=== PATIENT | female | born 1940 | race Caucasian/White ===

== ENCOUNTER 2017-07-26 23:38 | Emergency (ER) | payer MEDICARE, BC ==
[~2017-07-26] VITALS: Ht 177.8 cm; Wt 80.9 kg
[2017-07-27] MEDS ORDERED: OXYMETAZOLINE HCL 0.05% NAS 1 SPRAY BTL ONE (00:30)
[2017-07-27] MEDS ORDERED: SPIRONOLACTONE25 MG PO (00:41)
[2017-07-27] MEDS ORDERED: CARVEDILOL12.5 MG PO (00:41)
[2017-07-27] MEDS ORDERED: XARELTO20 MG PO (00:41)
[2017-07-27] MEDS ORDERED: IBERSARTAN PEG (00:41)
[2017-07-27] MEDS ORDERED: METFORMIN HCL500 MG PO (00:41)
[2017-07-27 00:44] VITALS: BP 128/69
== END 2017-07-27 01:00 | disposition home or self-care (01) ==
LOC: FSED 23:38
DX: R04.0 Epistaxis (principal); W01.198A Fall on same level from slipping, tripping and stumbling with subsequent striking against other object, initial encounter; Y93.H2 Activity, gardening and landscaping; Y92.007 Garden or yard of unspecified non-institutional (private) residence as the place of occurrence of the external cause; I51.9 Heart disease, unspecified
CPT/HCPCS: 99282

== ENCOUNTER 2017-07-27 13:01 | Emergency (ER) | payer MEDICARE, BC ==
[~2017-07-27] VITALS: Ht 177.8 cm; Wt 80.7 kg
[~2017-07-27 13:01] MED LIST: CARVEDILOL12.5 MG PO; IBERSARTAN PEG; METFORMIN HCL500 MG PO; SPIRONOLACTONE25 MG PO; XARELTO20 MG PO
--- OUTSIDE RECORDS SUMMARY | 2017-07-27 13:03 | XMS REPORT | Clinical Summary ---
Author Author LIBIA Makeblock [facility] Address Unknown Phone Unavailable Care Team Providers Care Coiled Tubing Operator Name Role Phone PCP Unavailable Allergies No Known Allergies Current Medications Prescription Sig. Disp. Refills Start End Date Status Date irbesartan (AVAPRO) 150 Take 150 mg by mouth Active MG tablet nightly. spironolactone Take 25 mg by mouth 2 Active (ALDACTONE) 25 MG tablet (two) times daily. carvedilol (COREG) 25 MG Take 25 mg by mouth 2 Active tablet (two) times daily with breakfast and dinner. aspirin 81 MG EC tablet Take 81 mg by mouth Active daily. metFORMIN (GLUCOPHAGE) Take 500 mg by mouth 2 Active 500 MG tablet (two) times daily with breakfast and dinner. omega-3 fatty acids-fish Take 2 g by mouth 2 (two) Active oil 340-1,000 mg Cap per times daily. capsule digoxin (LANOXIN) 0.25 MG Take 250 mcg by mouth 05/31/19 Discontin tablet daily. 18 ued Active Problems Problem Noted Date Nonischemic cardiomyopathy (HCC) 05/28/2017 Diabetes mellitus (HCC) 05/27/2017 Exertional dyspnea 05/27/2017 Essential hypertension 05/27/2017 Atrial fibrillation with slow ventricular response (HCC) 05/26/2017 Encounters Date Type Specialty Care Team Description 05/29/2017 Procedure Pass 05/29/2017 Surgery Jayjay Fuentes, PACEMAKER GEN & LEADS - MD INSERTION W/ MAC ANESTHESIA (SING/DUAL/MULT) 05/26/2017 [facility] Cardiology FreedomRob MD Atrial fibrillation with - Encounter Rama Desai slow ventricular response 05/30/2017 Seven Pride MD ([facility]) (Primary Dx);Acute Damián Lowe MD congestive heart failure, unspecified congestive heart failure type (HCC);Type 2 diabetes mellitus without complication, without long-term current use of insulin (HCC);Essential hypertension;Leg swelling;Nonischemic cardiomyopathy (HCC);Pacemaker 05/26/2017 Orders Only General Internal Medicine after 07/26/2016 Social History Tobacco Use Types Packs/Day Years Used Date Never Smoker Smokeless Tobacco: Never Used Alcohol Use Drinks/Week oz/Week Comments No Sex Assigned at Date Recorded Not on file Last Filed Vital Signs Vital Sign Reading Time Taken Blood Pressure 122/57 05/30/2017 11:20 AM CDT Pulse 77 05/30/2017 11:20 AM CDT Temperature 37.2 C (98.9 F) 05/30/2017 11:20 AM CDT Respiratory Rate 18 05/30/2017 11:20 AM CDT Oxygen Saturation 95% 05/30/2017 11:20 AM CDT Inhaled Oxygen - - Concentration Weight 78.2 kg (172 lb 4.8 oz) 05/30/2017 5:27 AM CDT Height 175.3 cm (5' 9") 05/27/2017 6:30 AM CDT Body Mass Index 25.44 05/30/2017 5:27 AM CDT Plan of Treatment Not on file Implants Implanted Type Area Sole Dyer Device Expiration Model / Identifier Date Serial / Lot Lead Pacemkr Capsur Novus 52cm Pacemaker N/A: Heart MEDTRONIC:CARD 5076-52 / [id number] - [id number] Lead RHY:DISEASE MGT [id number] Implanted: Qty: 1 on 05/29/2017 by / Jayjay Fuentes MD Advisa Sr Mri Surescan Pacemakers N/A: Chest MEDTRONIC 10/11/2018 [id number] / Implanted: Qty: 1 on 05/29/2017 by [id number] Jayjay Fuentes MD / Procedures Procedure Name Priority Date/Time Associated Diagnosis Comments PACEMAKER GEN & LEADS - 05/29/2017 Bradycardia INSERTION W/ MAC 7:30 AM CDT ANESTHESIA (SING/DUAL/MULT) Case Notes (1) CASE RM 2442 single chamber ventricula r pacemakerM edtronic after 07/26/2016 Results * RHYTHM STRIP - SCAN (06/02/2017 11:10 AM) * ARRYTHMIA IMPLANT REPORT - SCAN (06/02/2017 11:10 AM) * ED ECG Interpretation (05/30/2017 3:53 PM) Narrative Rob Turcios MD 05/30/20173:53 PM ECG/EKG Interpretation Date/Time: 05/26/2017 2:59 PM Performed by: ROB TURCIOS Authorized by: ROB TURCIOS The ECG was interpreted by ED physician. The ECG is interpreted as atrial fibrillation. Rate is bradycardic. Heart rate is 44 BPM. Conduction: conduction normal. ST segments abnormal. T waves abnormal. [place] is normal. Other findings: no other findings. Clinical Impression: abnormal ECGECG reviewed and does not meet STEMI criteria. Patient tolerance: Patient tolerated the procedure well with no immediate complications * CARDIAC CATH REPORT - SCAN (05/30/2017 3:20 PM) * POC-Glucose meter (05/30/2017 11:25 AM) Only the most recent of 10 results within the time period is included. Component Value Ref Range POC-Glucose Meter 111 (H)Comment: TESTED AT [address] 70 - 110 mg /dL [place] [id number] Specimen Performing Laboratory [place] [address] * XR chest 1 view portable/bedside (05/30/2017 6:58 AM) Only the most recent of 3 results within the time period is included. Specimen Performing Laboratory GE RIS Narrative FINAL REPORT COMPARISON: 05/29/2017 TECHNIQUE: Single view of the chest FINDINGS: Left retrocardiac density which may represent atelectasis or pneumonitis again noted. Otherwise lungs are clear. Cardiac silhouette is enlarged. Left-sided pacing device noted. IMPRESSION: No significant interval change from previous exam. Signed: Braden Dial MD Report Verified Date/Time:05/30/2017 09:08:57 Reading Location: [facility] Radiology Reading Room Procedure Note Interface, External Ris In - 05/30/2017 9:11 AM CDT FINAL REPORT COMPARISON: 05/29/2017 TECHNIQUE: Single view of the chest FINDINGS: Left retrocardiac density which may represent atelectasis or pneumonitis again noted. Otherwise lungs are clear. Cardiac silhouette is enlarged. Left-sided pacing device noted. IMPRESSION: No significant interval change from previous exam. Signed: Braden Dial MD Report Verified Date/Time: 05/30/2017 09:08:57 Reading Location: [facility] Radiology Reading Room * EKG 12 lead (05/30/2017 5:37 AM) Only the most recent of 3 results within the time period is included. Specimen Performing Laboratory GE MUSE Narrative Ventricular Rate 76 BPM Atrial Rate 374 BPM QRS Duration 106 ms Q-T Interval 358 ms QTC Calculation(Bazett) 402 ms R [place] -13 degrees T [place] 157 degrees Demand pacemaker;interpretation is based on intrinsic rhythm Atrial flutter with variable A-V blockwith intermittent electronic ventricular pacing Incomplete left bundle branch block Inferior infarct (cited on or before 26-MAY-2017) Anterior infarct (cited on or before 26-MAY-2017) Marked ST abnormality, possible lateral subendocardial injury Abnormal ECG When compared with ECG of 26-MAY-2017 18:48, Atrial flutter has replaced Atrial fibrillation PVCs are not seen now Vent. rate has increased BY26 BPM Confirmed by MD MCKINNEY YOCHAI ([id number]) on 05/30/2017 6:57:19 AM Procedure Note Interface, External Ris In - 05/30/2017 6:57 AM CDT Ventricular Rate 76 BPM Atrial Rate 374 BPM QRS Duration 106 ms Q-T Interval 358 ms QTC Calculation(Bazett) 402 ms R [place] -13 degrees T [place] 157 degrees Demand pacemaker; interpretation is based on intrinsic rhythm Atrial flutter with variable A-V block with intermittent electronic ventricular pacing Incomplete left bundle branch block Inferior infarct (cited on or before 26-MAY-2017) Anterior infarct (cited on or before 26-MAY-2017) Marked ST abnormality, possible lateral subendocardial injury Abnormal ECG When compared with ECG of 26-MAY-2017 18:48, Atrial flutter has replaced Atrial fibrillation PVCs are not seen now Vent. rate has increased BY 26 BPM Confirmed by MD MCKINNEY YOCHAI ([id number]) on 05/30/2017 6:57:19 AM * Calcium, Ionized (05/30/2017 4:26 AM) Only the most recent of 4 results within the time period is included. Component Value Ref Range Calcium, Ion 1.06 (L) 1.12 - 1.27 mmol/L pH, Blood 7.48 Specimen Performing Laboratory Blood - Arm, [place] [id number] * CBC with platelet count + automated diff (05/30/2017 4:26 AM) Only the most recent of 5 results within the time period is included. Component Value Ref Range WBC 9.9 3.5 - 10.5 K/ L RBC 3.85 (L) 3.93 - 5.22 M/ L Hemoglobin 11.8 11.2 - 15.7 GM/DL Hematocrit 36.3 34.1 - 44.9 % MCV 94.3 79.4 - 94.8 fL MCH 30.6 25.6 - 32.2 pg MCHC 32.5 32.2 - 35.5 GM/DL RDW 12.6 11.7 - 14.4 % Platelets 291 150 - 450 K/CU MM MPV 9.5 9.4 - 12.3 fL nRBC 0 0 - 0 /100 WBC % Neutros 58 % % Lymphs 28 % % Monos 12 % % Eos 2 % % Baso 1 % # Neutros 5.68 1.56 - 6.13 K/ L # Lymphs 2.73 1.18 - 3.74 K/ L # Monos 1.20 (H) 0.24 - 0.36 K/ L # Eos 0.18 0.04 - 0.36 K/ L # Baso 0.05 0.01 - 0.08 K/ L Immature 0 0 - 1 % Granulocytes-Relative Specimen Performing Laboratory Blood - Arm, [address] [address] * CBC with platelet count + automated diff (05/30/2017 4:26 AM) Only the most recent of 5 results within the time period is included. Specimen Performing Laboratory Blood Narrative The following orders were created for panel order CBC with platelet count + automated diff. Procedure Abnormality Status --------- - ------ CBC with platelet count ...[[id number]]AbnormalFinal result Please view results for these tests on the individual orders. * Phosphorus (05/30/2017 4:26 AM) Only the most recent of 3 results within the time period is included. Component Value Ref Range Phosphorus 3.3 2.3 - 4.7 mg/dL Specimen Performing Laboratory Blood - Arm, [address] [address] * Magnesium (05/30/2017 4:26 AM) Only the most recent of 5 results within the time period is included. Component Value Ref Range Magnesium 2.0 1.6 - 2.6 mg/dL Specimen Performing Laboratory Blood - Arm, [address] [address] * Basic Metabolic Panel (05/30/2017 4:26 AM) Only the most recent of 4 results within the time period is included. Component Value Ref Range Sodium 132 (L) 136 - 145 meq/L Potassium 4.2 3.5 - 5.1 meq/L Chloride 103 98 - 107 meq/L CO2 17 (L) 22 - 29 meq/L BUN 18 7 - 21 mg/dL Creatinine 0.76 0.57 - 1.25 mg/dL Glucose 121 (H) 70 - 105 mg/dL Calcium 9.5 8.4 - 10.2 mg/dL EGFR 73Comment: ESTIMATED GFR IS NOT ACCURATE mL/min/1.73 sq m CREATININE CLEARANCE IN PREDICTING GLOMERULAR FILTRATION RATE. ESTIMATED GFR IS NOT APPLICABLE FOR DIALYSIS PATIENTS. Specimen Performing Laboratory Blood - Arm, [address] [address] Narrative Specimen slightly icteric * Prothrombin time/INR (05/29/2017 5:00 AM) Only the most recent of 3 results within the time period is included. Component Value Ref Range Protime 14.5 11.7 - 14.7 seconds INR 1.1 <=5.9 Specimen Performing Laboratory Blood [address] [address] Narrative RECOMMENDED COUMADIN/WARFARIN INR THERAPY RANGES STANDARD DOSE: 2.0 - 3.0 Includes: PROPHYLAXIS for venous thrombosis, systemic embolization; TREATMENT for venous thrombosis and/or pulmonary embolus. HIGH RISK: Target INR is 2.5-3.5 for patients with mechanical heart valves. * Hemoglobin A1c (05/29/2017 5:00 AM) Only the most recent of 2 results within the time period is included. Component Value Ref Range Hemoglobin A1C 6.2 (H) 4.3 - 6.1 % Specimen Performing Laboratory Blood [address] [address] * Hepatic function panel (05/29/2017 5:00 AM) Only the most recent of 3 results within the time period is included. Component Value Ref Range Protein, Total 7.9 6.0 - 8.3 gm/dL Albumin 4.0 3.5 - 5.0 g/dL Total Bilirubin 1.4 (H) 0.2 - 1.2 mg/dL Bilirubin, Direct 0.5 0.1 - 0.5 mg/dL Alkaline Phosphatase 62 40 - 150 U/L AST 21 5 - 34 U/L ALT 21 6 - 55 U/L Specimen Performing Laboratory Blood [address] [address] Narrative Specimen slightly icteric * Lipid panel (05/29/2017 5:00 AM) Only the most recent of 3 results within the time period is included. Component Value Ref Range Triglycerides 136 mg/dL Cholesterol 163 mg/dL HDL 29 mg/dL LDL Calculated 107 mg/dL Specimen Performing Laboratory Blood [address] [address] Narrative Triglyceride Reference Range: Low Risk <150 [id number] High Risk 200-499 Very High Risk>=500 Cholesterol Reference Range: Low Risk <200 [id number] High Risk>240 HDL Cholesterol Reference Range: Low Risk >=60 High Risk <40 LDL Cholesterol Reference Range: Optimal<100 Near [id number] Very High >=190 Specimen slightly icteric * ECHOCARDIOGRAM REPORT - SCAN (05/28/2017 5:07 PM) * B-type Natriuretic Factor (BNP) (05/28/2017 10:06 AM) Only the most recent of 2 results within the time period is included. Component Value Ref Range BNP 119 (H) 0 - 100 pg/mL Specimen Performing Laboratory Blood - Arm, Right [address] [address] * 2D Echo W/Doppler(CW/PW/Color) (05/27/2017 4:16 PM) Component Value Ref Range Ejection Fraction Specimen Performing Laboratory [facility] Narrative Transthoracic Echocardiography Report (TTE) Demographics Patient NameSTANGER, SUE Date of Study03/ MAJO Gender Female Visit [id number] Race Unknown [id number] Number Date of 1940 ReferringJayjay Fuentes Physician Age 77 year(s) Hand Drawer In Helper Constanza Jasmine Interpreting Milena Aguilar Physician MIRA Sims Procedure Type of Study TTE procedure:2DECHO W DOPPLER(CW/PW/COLOR) (Routine) Indications:Shortness of breath. Clinical History HTN DM A.FIB. SOB EDEMA HGB 10.6 HCT 32.8 % Height: 69 inches Weight: 78.02 kg (172 lbs) BSA: 1.94 m^2 BMI: 25.4 kg/m^2 HR: 62 bpm BP: 118/60 mmHg Summary 1. The left ventricle is chamber size (by vol index) is mildly enlarged (female - LVED 62-70ml/m2). All of the LV segments are mildly hypokinetic. 2. LVEF by Chadwick's method of disk assessment is mildly reduced (45-49%) Estimated peak systolic PA pressure is 30-35 mmHg . Previous Study No prior exam available for comparison. Signature Findings Rhythm/BPIrregular rhythm during the exam. Left Ventricle The left ventricle is chamber size (by vol index ) is mildly enlarged (female - LVED 62-70ml/m2). No evidence of LV hypertrophy. All of the LV segments are mildly hypokinetic . Global LV systolic function mildly reduced . LVEF by Chadwick's method of disk assessment is mildly reduced (45-49%) . Left AtriumLA size is moderately enlarged (42-48 ml/m2 ) . Right VentricleThe right ventricular chamber size and systolic function are within normal limits. Right Atrium RA size is probably normal based on available views. Aortic Valve Mild aortic regurgitation. Mitral Valve Mild MV leaflet thickening. Mild mitral regurgitation. Tricuspid ValveMild tricuspid regurgitation. Estimated peak systolic PA pressure is 30-35 mmHg . Pulmonic Valve Mild pulmonary regurgitation. AortaAortic root size (Sinus of Valsalva diameter) is mildly dilated. 4.1 cm PericardiumNo pericardial effusion is visualized. IVC/SVC/PA/PV/PleuralThe estimated RA pressure by IVC dynamics 0-5mmHg . Chambers/Structures Left Atrium LA Volume: 91.71 ml LA Area: 27.89 cm^2 LA Vol. Index: 47 ml/m^2 Left Ventricle LVIDd: 5.18 cm LVIDs: 3.41 cm LV Septum Diastolic: 0.89 cm LV PW Diastolic: 1.24 cmLV FS: 34.2 % LVEDV Chadwick's:128.2 ml LVESV Chadwick's:69.4 ml LVEDVI: 66 ml/m ^2 LVEF Chadwick's: 45.9 %LVESVI: 36 ml /m^2 LVOT Diameter: 2.07 cm Aorta Ascending Aorta: 4.24 cm Doppler/Quantitative Measurements Mitral Valve MV Jae. Peak: Tissue Doppler E' Lateral Velocity: 0.11 m/s Aortic Valve Peak Velocity: 2.03 m/sMean Velocity: 1.14 m/s Peak Gradient: 16.53 mmHgMean Gradient: 6.36 mmHg AV Area (continuity): 1.34 cm^2 AV VTI: 31.73 cm AV DVI: 0.4 LVOT Peak Velocity: 0.62 m/s Peak Gradient: 1.53 mmHg Mean Velocity: 0.42 m/s Mean Gradient: 0.79 mmHg LVOT Diameter: 2.07 cmLVOT VTI: 12.64 cm LVOT Area: 3.37 cm^2LVOT SV:42.52 ml LVOT CO: 2.64 l/min LVOT CI: 1.36 l/min/m^2 Tricuspid Valve TR Velocity: 2.8 m/s TR Gradient: 31.36 mmHg Contractility Score LV regional wall motion:(0-Non visualized 1-Normal 2-Hypokinesis 3-Akinesis 4-Dyskinesis 5-Aneurysm) Procedure Note Interface, External Ris In - 05/28/2017 4:09 PM CDT Transthoracic Echocardiography Report (TTE) Demographics Patient Name SUE DOLAN Date of Study 05/27/2017 MAJO Gender Female Visit Number [id number] Race Unknown Room Number 2442 Number Date of 1940 Referring Jayjay Fuentes Physician Age 77 year(s) Hand Drawer In Helper Constanza Jasmine Interpreting Milena Aguilar Physician Fellow MIRA Farris Procedure Type of Study TTE procedure:2DECHO W DOPPLER(CW/PW/COLOR) (Routine) Indications:Shortness of breath. Clinical History HTN DM A.FIB. SOB EDEMA HGB 10.6 HCT 32.8 % Height: 69 inches Weight: 78.02 kg (172 lbs) BSA: 1.94 m^2 BMI: 25.4 kg/m^2 HR: 62 bpm BP: 118/60 mmHg Summary 1. The left ventricle is chamber size (by vol index) is mildly enlarged (female - LVED 62-70ml/m2). All of the LV segments are mildly hypokinetic. 2. LVEF by Chadwick's method of disk assessment is mildly reduced (45-49%) Estimated peak systolic PA pressure is 30-35 mmHg . Previous Study No prior exam available for comparison. Signature Findings Rhythm/BP Irregular rhythm during the exam. Left Ventricle The left ventricle is chamber size (by vol index) is mildly enlarged (female - LVED 62-70ml/m2). No evidence of LV hypertrophy. All of the LV segments are mildly hypokinetic . Global LV systolic function mildly reduced . LVEF by Chadwick's method of disk assessment is mildly reduced (45-49%) . Left Atrium LA size is moderately enlarged (42-48 ml/m2) . Right Ventricle The right ventricular chamber size and systolic function are within normal limits. Right Atrium RA size is probably normal based on available views. Aortic Valve Mild aortic regurgitation. Mitral Valve Mild MV leaflet thickening. Mild mitral regurgitation. Tricuspid Valve Mild tricuspid regurgitation. Estimated peak systolic PA pressure is 30-35 mmHg . Pulmonic Valve Mild pulmonary regurgitation. Aorta Aortic root size (Sinus of Valsalva diameter) is mildly dilated. 4.1 cm Pericardium No pericardial effusion is visualized. IVC/SVC/PA/PV/Pleural The estimated RA pressure by IVC dynamics 0-5mmHg . Chambers/Structures Left Atrium LA Volume: 91.71 ml LA Area: 27.89 cm^2 LA Vol. Index: 47 ml/m^2 Left Ventricle LVIDd: 5.18 cm LVIDs: 3.41 cm LV Septum Diastolic: 0.89 cm LV PW Diastolic: 1.24 cm LV FS: 34.2 % LVEDV Chadwick's:128.2 ml LVESV Chadwick's:69.4 ml LVEDVI: 66 ml/m^2 LVEF Chadwick's: 45.9 % LVESVI: 36 ml/m^2 LVOT Diameter: 2.07 cm Aorta Ascending Aorta: 4.24 cm Doppler/Quantitative Measurements Mitral Valve MV Jae. Peak: Tissue Doppler E' Lateral Velocity: 0.11 m/s Aortic Valve Peak Velocity: 2.03 m/s Mean Velocity: 1.14 m/s Peak Gradient: 16.53 mmHg Mean Gradient: 6.36 mmHg AV Area (continuity): 1.34 cm^2 AV VTI: 31.73 cm AV DVI: 0.4 LVOT Peak Velocity: 0.62 m/s Peak Gradient: 1.53 mmHg Mean Velocity: 0.42 m/s Mean Gradient: 0.79 mmHg LVOT Diameter: 2.07 cm LVOT VTI: 12.64 cm LVOT Area: 3.37 cm^2 LVOT SV:42.52 ml LVOT CO: 2.64 l/min LVOT CI: 1.36 l/min/m^2 Tricuspid Valve TR Velocity: 2.8 m/s TR Gradient: 31.36 mmHg Contractility Score LV regional wall motion:(0-Non visualized 1-Normal 2-Hypokinesis 3-Akinesis 4-Dyskinesis 5-Aneurysm) * Troponin I (05/27/2017 7:37 AM) Only the most recent of 3 results within the time period is included. Component Value Ref Range Troponin I 0.02 0.00 - 0.03 ng/mL Specimen Performing Laboratory Blood - Arm, [address] [address] Narrative Troponin I (TnI) levels must be interpreted in the context of the presenting symptoms and the clinical findings. Elevated TnI levels indicate myocardial damage, but are not specific for ischemic heart disease. Elevated TnI levels are seen in patients with other cardiac conditions (including myocarditis and congestive heart failure), and slight TnI elevations occur in patients with other conditions, including sepsis, renal failure, acidosis, acute neurological disease, and persistent tachyarrhythmia. * Urinalysis Microscopic Only (05/26/2017 4:07 PM) Component Value Ref Range RBC, UA <1 /HPF WBC, UA 2 /HPF Squam Epithel, UA <1 /HPF Specimen Performing Laboratory Urine - Urine, [facility] [address] [place] [id number] * Urinalysis with Microscopic If Indicated (05/26/2017 4:07 PM) Component Value Ref Range Color, UA Light Yellow Clarity, UA Clear Specific [place], UA 1.005 1.001 - 1.035 pH, UA 6.0 5.0 - 8.0 Protein, UA Negative Negative Glucose, UA Negative Negative Ketones, UA Negative Negative Bilirubin, UA Negative Negative Blood, UA Negative Negative Nitrite, UA Negative Negative Leukocytes, UA Moderate (A) Negative Urobilinogen, UA 0.2 0.2 - 1.0 mg/dL Specimen Source Specimen Performing Laboratory Urine - Urine, [facility] [address] [place] [id number] * TSH (05/26/2017 4:07 PM) Component Value Ref Range TSH 2.09 0.35 - 4.94 uIU/mL Specimen Performing Laboratory Blood - Arm, [address] [address] * Comprehensive metabolic panel (05/26/2017 4:07 PM) Component Value Ref Range Protein, Total 7.5Comment: Specimen slightly hemolyzed 6.0 - 8.3 gm/dL Albumin 3.9Comment: Specimen slightly hemolyzed 3.5 - 5.0 g/dL Alkaline Phosphatase 55 40 - 150 U/L Total Bilirubin 0.6Comment: Specimen slightly hemolyzed 0.2 - 1.2 mg/dL Sodium 139 136 - 145 meq/L Potassium 4.8Comment: Specimen slightly hemolyzed 3.5 - 5.1 meq/L Chloride 108 (H) 98 - 107 meq/L CO2 21 (L) 22 - 29 meq/L BUN 12 7 - 21 mg/dL Creatinine 0.81Comment: Specimen slightly hemolyzed 0.57 - 1.25 mg/dL Glucose 91 70 - 105 mg/dL Calcium 9.6 8.4 - 10.2 mg/dL AST 29Comment: Specimen slightly hemolyzed 5 - 34 U/L ALT 30Comment: Specimen slightly hemolyzed 6 - 55 U/L EGFR 68Comment: ESTIMATED GFR IS NOT ACCURATE mL/min/1.73 sq m CREATININE CLEARANCE IN PREDICTING GLOMERULAR FILTRATION RATE. ESTIMATED GFR IS NOT APPLICABLE FOR DIALYSIS PATIENTS. Specimen Performing Laboratory Blood - Arm, Left [address] [address] * PT/aPTT (05/26/2017 3:23 PM) Component Value Ref Range Protime 15.5 (H) 11.7 - 14.7 seconds INR 1.2 <=5.9 PTT 32.3 22.5 - 36.0 seconds Specimen Performing Laboratory Blood - Line, Venous [address] [address] Narrative RECOMMENDED COUMADIN/WARFARIN INR THERAPY RANGES STANDARD DOSE: 2.0 - 3.0 Includes: PROPHYLAXIS for venous thrombosis, systemic embolization; TREATMENT for venous thrombosis and/or pulmonary embolus. HIGH RISK: Target INR is 2.5-3.5 for patients with mechanical heart valves. after 07/26/2016
--- OUTSIDE RECORDS SUMMARY | 2017-07-27 13:04 | XMS REPORT | Continuity of Care Document ---
Author Author [facility] Organization [facility] Address [address] [place] [address] Phone Unavailable Care Team Providers Care Electrical Intern Name Role Phone NO, PCP PCP Unavailable Insurance Providers Guarantor Sue Powell Address [address] [place] [address] Email [email or web address] Payer Medicare A & B Policy Number [id number] Subscriber's Name Sue Powell Relationship 18 Self / Same As Patient Group Number [id number] Group Name [place] [employer] Effective Date 07/27/17 Payer [facility] Ppo Policy Number [id number] Subscriber's Name Andre,Sue Martinez Relationship 18 Self / Same As Patient Group Number [id number] Group Name [place] [employer] Effective Date 08/15/04 Advance Directives Directive Response Recorded Date/Time Does the patient have an advance directive? No 12/11/07 8:07am If yes, is advance directive on file with [facility]? No 12/11/07 8:07am If not on file with [facility] will patient provide a copy? No 07/27/17 12:28am Do you have a Directive to Physician? No 07/27/17 12:28am Do you have a Medical Power of Utility Assembler? No 07/27/17 12:28am Do you have an out of hospital Do Not Resuscitate Order? No 07/27/17 12:28am Do you have any special needs we should be aware of? No 07/27/17 12:28am Do you have a support person here with you today? Yes 07/27/17 12:28am Did patient receive Notice of Privacy Practices? Yes 07/27/17 12:28am Did patient receive patient rights and responsibilities? Yes 07/27/17 12:28am Problems No problem information available. Medications Current Home Medications Medication Dose Units Route Directions Days Qty Instructions Start Date Carvedilol 12.5 Mg Tablet 25 Mg Oral Twice A Day 60 Tab Ibersartan 150 Mg Peg Tube Daily Metformin Hcl 500 Mg Tablet 500 Mg Oral Twice A Day 60 Tab Rivaroxaban (Xarelto) 20 Mg Tablet Oral Daily Spironolactone 25 Mg Tablet 25 Mg Oral Twice A Day 60 Tab Social History Smoking Status Start Date Stop Date Never Smoker Hospital Discharge Instructions No hospital discharge instruction information available. Plan of Care Discharge Date 07/27/17 1:00am Disposition HOME, SELF-CARE Condition at Discharge Improved Instructions/Education Provided Epistaxis - Adult Forms Provided Work/School Excuse Prescriptions See Medication Section Functional Status No functional status information available. Allergies, Adverse Reactions, Alerts No known allergies. Immunizations No immunization information available. Vital Signs Acute Vital Signs Vital Response Date/Time Pulse Pulse Rate (adult) 81 bpm (60 - 90) 07/27/2017 12:44am Respiratory Rate 18 bpm (12 - 24) 07/27/2017 12:44am Blood Pressure 128/69 mm Hg 07/27/2017 12:44am Height 5 ft 10 in 07/26/2017 11:42pm Weight 178.44 lb 07/26/2017 11:42pm Body Mass Index 25.6 kg/m^2 07/26/2017 11:42pm Results No relevant diagnostic test, laboratory data and/or discharge summary information available. Procedures No procedure information available. Encounters Encounter Location Arrival/Admit Date Discharge/Depart Date Attending Provider Departed Emergency Room [facility] 07/26/17 11:38pm 07/27 1:00am JADE SMITH MD
--- OUTSIDE RECORDS SUMMARY | 2017-07-27 13:04 | XMS REPORT ---
[facility] Address Unknown Phone Unavailable Care Team Providers Care Guard Supervisor Name Role Phone STEVEN NORMAN Unavailable Unavailable Problems This patient has no known problems. Allergies, Adverse Reactions, Alerts This patient has no known allergies or adverse reactions. Medications This patient has no known medications. Results Test Description Test Time Test Comments Text Results Atomic Results Result Comments POCT-GLUCOSE METER 2017-05-30 12:10:00 POC-GLUCOSE METER (BEAKER) (test gjmd=1690) 111 mg/dL 70-110 TESTED AT [address] [address] RAD, CHEST, 1 VIEW, NON [id number] 09:08:00Reason for exam:->post ppm insertionShould this be performed at the bedside?->YesFINAL REPORT COMPARISON: 05/29/2017 TECHNIQUE: Single view of the chest FINDINGS: Left retrocardiac density which may represent atelectasis or pneumonitis again noted. Otherwise lungs are clear. Cardiac silhouette is enlarged. Left-sided pacing device noted. IMPRESSION: No significant interval change from previous exam. Signed: Minda Dial MDReport Verified Date/Time: 05/30/2017 09:08:57 Reading Location: [facility] Radiology Reading Room [id number] 08:41:00* Test Item Value Reference Range Comments PHOSPHORUS (BEAKER) (test vrag=093) 3.3 mg/dL 2.3-4.7 [id number] 08:41:00* Test Item Value Reference Range Comments MAGNESIUM (BEAKER) (test kfbm=416) 2.0 mg/dL 1.6-2.6 BASIC METABOLIC [id number] 08:41:00* Test Item Value Reference Range Comments SODIUM (BEAKER) (test sprw=369) 132 meq/L 136-145 POTASSIUM (BEAKER) (test addd=873) 4.2 meq/L 3.5-5.1 CHLORIDE (BEAKER) (test pvll=394) 103 meq/L 98-107 CO2 (BEAKER) (test zkkj=631) 17 meq/L 22-29 BLOOD UREA NITROGEN (BEAKER) (test imrh=511) 18 mg/dL 7-21 CREATININE (BEAKER) (test mrzj=176) 0.76 mg/dL 0.57-1.25 GLUCOSE RANDOM (BEAKER) (test iqnj=877) 121 mg/dL 70-105 CALCIUM (BEAKER) (test cbgk=062) 9.5 mg/dL 8.4-10.2 EGFR (BEAKER) (test gjuh=2969) 73 mL/min/1.73 sq m ESTIMATED GFR IS NOT ACCURATE CREATININE CLEARANCE IN PREDICTING GLOMERULAR FILTRATION RATE. ESTIMATED GFR IS NOT APPLICABLE FOR DIALYSIS PATIENTS. Specimen slightly ictericPOCT-GLUCOSE [id number] 08:25:00* Test Item Value Reference Range Comments POC-GLUCOSE METER (BEAKER) (test egwj=2139) 137 mg/dL 70-110 TESTED AT [address] [address] CALCIUM, [id number] 05:30:00* Test Item Value Reference Range Comments CALCIUM IONIZED (BEAKER) (test iylp=747) 1.06 mmol/L 1.12-1.27 PH, BLOOD (BEAKER) (test wnem=7313) 7.48 CBC W/PLT COUNT & AUTO [id number] 05:11:00* Test Item Value Reference Range Comments WHITE BLOOD CELL COUNT (BEAKER) (test wzbi=333) 9.9 K/ L 3.5-10.5 RED BLOOD CELL COUNT (BEAKER) (test trcl=697) 3.85 M/ L 3.93-5.22 HEMOGLOBIN (BEAKER) (test ojgk=331) 11.8 GM/DL 11.2-15.7 HEMATOCRIT (BEAKER) (test xena=408) 36.3 % 34.1-44.9 MEAN CORPUSCULAR VOLUME (BEAKER) (test pikm=570) 94.3 fL 79.4-94.8 MEAN CORPUSCULAR HEMOGLOBIN (BEAKER) (test wegr=652) 30.6 pg 25.6-32.2 MEAN CORPUSCULAR HEMOGLOBIN CONC (BEAKER) (test dtth=368) 32.5 GM/DL 32.2- 35.5 RED CELL DISTRIBUTION WIDTH (BEAKER) (test vjnr=679) 12.6 % 11.7-14.4 PLATELET COUNT (BEAKER) (test ejrn=828) 291 K/CU MM 150-450 MEAN PLATELET VOLUME (BEAKER) (test ryuw=571) 9.5 fL 9.4-12.3 NUCLEATED RED BLOOD CELLS (BEAKER) (test rlsg=319) 0 /100 WBC 0-0 NEUTROPHILS RELATIVE PERCENT (BEAKER) (test rogg=844) 58 % LYMPHOCYTES RELATIVE PERCENT (BEAKER) (test oocd=510) 28 % MONOCYTES RELATIVE PERCENT (BEAKER) (test vdqi=837) 12 % EOSINOPHILS RELATIVE PERCENT (BEAKER) (test bezh=689) 2 % BASOPHILS RELATIVE PERCENT (BEAKER) (test bhup=830) 1 % NEUTROPHILS ABSOLUTE COUNT (BEAKER) (test vdpa=769) 5.68 K/ L 1.56-6.13 LYMPHOCYTES ABSOLUTE COUNT (BEAKER) (test elwz=994) 2.73 K/ L 1.18-3.74 MONOCYTES ABSOLUTE COUNT (BEAKER) (test hrio=183) 1.20 K/ L 0.24-0.36 EOSINOPHILS ABSOLUTE COUNT (BEAKER) (test bivf=536) 0.18 K/ L 0.04-0.36 BASOPHILS ABSOLUTE COUNT (BEAKER) (test blpi=997) 0.05 K/ L 0.01-0.08 IMMATURE GRANULOCYTES-RELATIVE PERCENT (BEAKER) (test nfqv=0712) 0 % 0-1 POCT-GLUCOSE [id number] 23:24:00* Test Item Value Reference Range Comments POC-GLUCOSE METER (BEAKER) (test aipu=1184) 114 mg/dL 70-110 TESTED AT [facility] [address] [facility] [address] RAD, CHEST, 1 VIEW, NON [id number] 10:59:00Reason for exam:->Post PPM insertionShould this be performed at the bedside?->YesFINAL REPORT Chest one view INDICATION: Post pacemaker insertion. COMPARISON: 05/26 IMPRESSION: A left chest pacemaker has been placed with lead in the right ventricle. Left chest wall skin zeyad are present. No pneumothorax is seen. The cardiac silhouette is enlarged. Similar left basilar opacities suggest atelectasis. Pneumonitis should be excluded clinically. Aortic ectasia/ tortuosity and calcifications are noted. The bones appear unchanged. Signed: Debra Ulloa MDReport Verified Date/Time: 05/29/2017 10:59:18 Reading Location: [facility] Radiology Reading Room GLOBIN [id number] 09:39: 00* Test Item Value Reference Range Comments HEMOGLOBIN A1C (BEAKER) (test ixrr=881) 6.2 % 4.3-6.1 BASIC METABOLIC [id number] 06:33:00* Test Item Value Reference Range Comments SODIUM (BEAKER) (test gtxo=567) 134 meq/L 136-145 POTASSIUM (BEAKER) (test alau=575) 3.8 meq/L 3.5-5.1 CHLORIDE (BEAKER) (test hocu=713) 99 meq/L 98-107 CO2 (BEAKER) (test wyff=306) 23 meq/L 22-29 BLOOD UREA NITROGEN (BEAKER) (test zpfj=786) 26 mg/dL 7-21 CREATININE (BEAKER) (test euqm=802) 0.95 mg/dL 0.57-1.25 GLUCOSE RANDOM (BEAKER) (test fuot=400) 132 mg/dL 70-105 CALCIUM (BEAKER) (test ntgo=834) 9.6 mg/dL 8.4-10.2 EGFR (BEAKER) (test scjv=3270) 57 mL/min/1.73 sq m ESTIMATED GFR IS NOT ACCURATE CREATININE CLEARANCE IN PREDICTING GLOMERULAR FILTRATION RATE. ESTIMATED GFR IS NOT APPLICABLE FOR DIALYSIS PATIENTS. Specimen slightly ictericLIPID [id number] 06:33:00* Test Item Value Reference Range Comments TRIGLYCERIDES (BEAKER) (test eatr=110) 136 mg/dL CHOLESTEROL (BEAKER) (test zujw=180) 163 mg/dL HDL CHOLESTEROL (BEAKER) (test ufgt=943) 29 mg/dL LDL CHOLESTEROL CALCULATED (BEAKER) (test ilaf=506) 107 mg/dL Triglyceride Reference Range: Low Risk <150 Borderline 150-199 High Risk 200-499 Very High Risk >=500Cholesterol Reference Range: Low Risk <200 Borderline 200-239 High Risk >240HDL Cholesterol Reference Range: Low Risk >=60 High Risk <40LDL Cholesterol Reference Range: Optimal <100 Near Optimal 100-129 Borderline 130-159 High 160-189 Very High >=190 Specimen slightly ictericHEPATIC FUNCTION [id number] 06:33:00* Test Item Value Reference Range Comments TOTAL PROTEIN (BEAKER) (test gevi=240) 7.9 gm/dL 6.0-8.3 ALBUMIN (BEAKER) (test puyr=8521) 4.0 g/dL 3.5-5.0 BILIRUBIN TOTAL (BEAKER) (test rzby=136) 1.4 mg/dL 0.2-1.2 BILIRUBIN DIRECT (BEAKER) (test qhul=919) 0.5 mg/dL 0.1-0.5 ALKALINE PHOSPHATASE (BEAKER) (test jgkb=223) 62 U/L 40-150 AST (SGOT) (BEAKER) (test jaox=955) 21 U/L 5-34 ALT (SGPT) (BEAKER) (test dgoq=383) 21 U/L 6-55 Specimen slightly [id number] 06:32:00* Test Item Value Reference Range Comments PHOSPHORUS (BEAKER) (test ebkp=354) 3.9 mg/dL 2.3-4.7 [id number] 06:32:00* Test Item Value Reference Range Comments MAGNESIUM (BEAKER) (test lcbm=179) 2.1 mg/dL 1.6-2.6 CALCIUM, [id number] 06:04:00* Test Item Value Reference Range Comments CALCIUM IONIZED (BEAKER) (test teza=922) 1.09 mmol/L 1.12-1.27 PH, BLOOD (BEAKER) (test uxis=8952) 7.47 PROTHROMBIN [id number] 05:31:00* Test Item Value Reference Range Comments PROTIME (BEAKER) (test cady=106) 14.5 seconds 11.7-14.7 INR (BEAKER) (test kkpb=604) 1.1 <=5.9 RECOMMENDED COUMADIN/WARFARIN INR THERAPY RANGESSTANDARD DOSE: 2.0 - 3.0 Includes: PROPHYLAXIS for venous thrombosis, systemic embolization; TREATMENT for venous thrombosis and/or pulmonary embolus.HIGH RISK: Target INR is 2.5-3.5 for patients with mechanical heart valves.CBC W/PLT COUNT & AUTO [id number] 05:26:00* Test Item Value Reference Range Comments WHITE BLOOD CELL COUNT (BEAKER) (test taxw=207) 8.4 K/ L 3.5-10.5 RED BLOOD CELL COUNT (BEAKER) (test txxm=155) 3.95 M/ L 3.93-5.22 HEMOGLOBIN (BEAKER) (test mksg=337) 12.0 GM/DL 11.2-15.7 HEMATOCRIT (BEAKER) (test yofi=221) 36.5 % 34.1-44.9 MEAN CORPUSCULAR VOLUME (BEAKER) (test fkcz=679) 92.4 fL 79.4-94.8 MEAN CORPUSCULAR HEMOGLOBIN (BEAKER) (test nlrv=251) 30.4 pg 25.6-32.2 MEAN CORPUSCULAR HEMOGLOBIN CONC (BEAKER) (test ukte=926) 32.9 GM/DL 32.2- 35.5 RED CELL DISTRIBUTION WIDTH (BEAKER) (test vhsp=816) 12.6 % 11.7-14.4 PLATELET COUNT (BEAKER) (test qawg=508) 294 K/CU MM 150-450 MEAN PLATELET VOLUME (BEAKER) (test ofqv=495) 9.6 fL 9.4-12.3 NUCLEATED RED BLOOD CELLS (BEAKER) (test raqu=254) 0 /100 WBC 0-0 NEUTROPHILS RELATIVE PERCENT (BEAKER) (test ieap=271) 56 % LYMPHOCYTES RELATIVE PERCENT (BEAKER) (test qzuf=542) 29 % MONOCYTES RELATIVE PERCENT (BEAKER) (test kakp=393) 11 % EOSINOPHILS RELATIVE PERCENT (BEAKER) (test cghe=889) 3 % BASOPHILS RELATIVE PERCENT (BEAKER) (test mvew=944) 1 % NEUTROPHILS ABSOLUTE COUNT (BEAKER) (test oxyr=127) 4.70 K/ L 1.56-6.13 LYMPHOCYTES ABSOLUTE COUNT (BEAKER) (test xlle=415) 2.47 K/ L 1.18-3.74 MONOCYTES ABSOLUTE COUNT (BEAKER) (test aqvp=817) 0.93 K/ L 0.24-0.36 EOSINOPHILS ABSOLUTE COUNT (BEAKER) (test ooxt=018) 0.24 K/ L 0.04-0.36 BASOPHILS ABSOLUTE COUNT (BEAKER) (test kcmr=426) 0.05 K/ L 0.01-0.08 IMMATURE GRANULOCYTES-RELATIVE PERCENT (BEAKER) (test rjmj=7969) 0 % 0-1 POCT-GLUCOSE [id number] 20:48:00* Test Item Value Reference Range Comments POC-GLUCOSE METER (BEAKER) (test totu=0616) 165 mg/dL 70-110 TESTED AT [address] [address] POCT-GLUCOSE [id number] 16:36:00* Test Item Value Reference Range Comments POC-GLUCOSE METER (BEAKER) (test dgwb=4435) 155 mg/dL 70-110 TESTED AT [address] [address] POCT-GLUCOSE [id number] 12:26:00* Test Item Value Reference Range Comments POC-GLUCOSE METER (BEAKER) (test ucdk=3845) 154 mg/dL 70-110 TESTED AT [address] [address] B-TYPE NATRIURETIC FACTOR (BNP)2017-05-28 10:43:00* Test Item Value Reference Range Comments B-TYPE NATRIURETIC PEPTIDE (BEAKER) (test hueh=918) 119 pg/mL 0-100 HEMOGLOBIN [id number] 09:46:00* Test Item Value Reference Range Comments HEMOGLOBIN A1C (BEAKER) (test joiv=260) 5.8 % 4.3-6.1 POCT-GLUCOSE [id number] 08:11:00* Test Item Value Reference Range Comments POC-GLUCOSE METER (BEAKER) (test ejay=1462) 128 mg/dL 70-110 TESTED AT [address] [address] [id number] 06:15:00* Test Item Value Reference Range Comments PHOSPHORUS (BEAKER) (test ruyc=574) 4.7 mg/dL 2.3-4.7 [id number] 06:15:00* Test Item Value Reference Range Comments MAGNESIUM (BEAKER) (test bddr=726) 2.2 mg/dL 1.6-2.6 BASIC METABOLIC [id number] 06:15:00* Test Item Value Reference Range Comments SODIUM (BEAKER) (test ikbp=280) 138 meq/L 136-145 POTASSIUM (BEAKER) (test ehyz=992) 3.7 meq/L 3.5-5.1 CHLORIDE (BEAKER) (test goss=810) 100 meq/L 98-107 CO2 (BEAKER) (test oqqm=679) 25 meq/L 22-29 BLOOD UREA NITROGEN (BEAKER) (test xcqw=381) 22 mg/dL 7-21 CREATININE (BEAKER) (test sfyl=477) 1.09 mg/dL 0.57-1.25 GLUCOSE RANDOM (BEAKER) (test tdqj=235) 125 mg/dL 70-105 CALCIUM (BEAKER) (test cxeb=534) 9.9 mg/dL 8.4-10.2 EGFR (BEAKER) (test mtfg=5121) 48 mL/min/1.73 sq m ESTIMATED GFR IS NOT ACCURATE CREATININE CLEARANCE IN PREDICTING GLOMERULAR FILTRATION RATE. ESTIMATED GFR IS NOT APPLICABLE FOR DIALYSIS PATIENTS. LIPID [id number] 06:15:00* Test Item Value Reference Range Comments TRIGLYCERIDES (BEAKER) (test frlo=724) 151 mg/dL CHOLESTEROL (BEAKER) (test dqbi=856) 157 mg/dL HDL CHOLESTEROL (BEAKER) (test jitw=405) 30 mg/dL LDL CHOLESTEROL CALCULATED (BEAKER) (test krrz=360) 97 mg/dL Triglyceride Reference Range: Low Risk <150 Borderline 150-199 High Risk 200-499 Very High Risk >=500Cholesterol Reference Range: Low Risk <200 Borderline 200-239 High Risk >240HDL Cholesterol Reference Range: Low Risk >=60 High Risk <40LDL Cholesterol Reference Range: Optimal <100 Near Optimal 100-129 Borderline 130-159 High 160-189 Very High >=190 HEPATIC FUNCTION [id number] 06:15:00* Test Item Value Reference Range Comments TOTAL PROTEIN (BEAKER) (test yxoo=154) 8.2 gm/dL 6.0-8.3 ALBUMIN (BEAKER) (test hoau=8622) 4.2 g/dL 3.5-5.0 BILIRUBIN TOTAL (BEAKER) (test jioq=896) 1.3 mg/dL 0.2-1.2 BILIRUBIN DIRECT (BEAKER) (test lsac=967) 0.4 mg/dL 0.1-0.5 ALKALINE PHOSPHATASE (BEAKER) (test vozi=001) 61 U/L 40-150 AST (SGOT) (BEAKER) (test psff=418) 21 U/L 5-34 ALT (SGPT) (BEAKER) (test lzqw=185) 25 U/L 6-55 PROTHROMBIN [id number] 05:57:00* Test Item Value Reference Range Comments PROTIME (BEAKER) (test tqqk=224) 15.0 seconds 11.7-14.7 INR (BEAKER) (test yjqj=971) 1.2 <=5.9 RECOMMENDED COUMADIN/WARFARIN INR THERAPY RANGESSTANDARD DOSE: 2.0 - 3.0 Includes: PROPHYLAXIS for venous thrombosis, systemic embolization; TREATMENT for venous thrombosis and/or pulmonary embolus.HIGH RISK: Target INR is 2.5-3.5 for patients with mechanical heart valves.CBC W/PLT COUNT & AUTO [id number] 05:48:00* Test Item Value Reference Range Comments WHITE BLOOD CELL COUNT (BEAKER) (test crem=301) 7.1 K/ L 3.5-10.5 RED BLOOD CELL COUNT (BEAKER) (test anqz=634) 3.88 M/ L 3.93-5.22 HEMOGLOBIN (BEAKER) (test olav=541) 11.9 GM/DL 11.2-15.7 HEMATOCRIT (BEAKER) (test wxkn=687) 36.3 % 34.1-44.9 MEAN CORPUSCULAR VOLUME (BEAKER) (test hfae=063) 93.6 fL 79.4-94.8 MEAN CORPUSCULAR HEMOGLOBIN (BEAKER) (test whuq=286) 30.7 pg 25.6-32.2 MEAN CORPUSCULAR HEMOGLOBIN CONC (BEAKER) (test vkhh=427) 32.8 GM/DL 32.2- 35.5 RED CELL DISTRIBUTION WIDTH (BEAKER) (test ivbj=963) 12.9 % 11.7-14.4 PLATELET COUNT (BEAKER) (test jefb=818) 301 K/CU MM 150-450 MEAN PLATELET VOLUME (BEAKER) (test mejm=922) 9.8 fL 9.4-12.3 NUCLEATED RED BLOOD CELLS (BEAKER) (test iyle=461) 0 /100 WBC 0-0 NEUTROPHILS RELATIVE PERCENT (BEAKER) (test yrre=625) 52 % LYMPHOCYTES RELATIVE PERCENT (BEAKER) (test evdd=758) 33 % MONOCYTES RELATIVE PERCENT (BEAKER) (test iuqx=487) 11 % EOSINOPHILS RELATIVE PERCENT (BEAKER) (test idng=685) 4 % BASOPHILS RELATIVE PERCENT (BEAKER) (test bskj=924) 1 % NEUTROPHILS ABSOLUTE COUNT (BEAKER) (test basa=130) 3.66 K/ L 1.56-6.13 LYMPHOCYTES ABSOLUTE COUNT (BEAKER) (test rxzj=203) 2.32 K/ L 1.18-3.74 MONOCYTES ABSOLUTE COUNT (BEAKER) (test hnzd=212) 0.79 K/ L 0.24-0.36 EOSINOPHILS ABSOLUTE COUNT (BEAKER) (test mynr=792) 0.29 K/ L 0.04-0.36 BASOPHILS ABSOLUTE COUNT (BEAKER) (test bjkn=413) 0.04 K/ L 0.01-0.08 IMMATURE GRANULOCYTES-RELATIVE PERCENT (BEAKER) (test lxtj=3317) 0 % 0-1 CALCIUM, [id number] 05:47:00* Test Item Value Reference Range Comments CALCIUM IONIZED (BEAKER) (test vijf=104) 0.98 mmol/L 1.12-1.27 PH, BLOOD (BEAKER) (test hljl=2619) 7.44 POCT-GLUCOSE [id number] 20:45:00* Test Item Value Reference Range Comments POC-GLUCOSE METER (BEAKER) (test yvud=9126) 159 mg/dL 70-110 TESTED AT [place] [id number] [facility] [address] POCT-GLUCOSE [id number] 18:23:00* Test Item Value Reference Range Comments POC-GLUCOSE METER (BEAKER) (test vjth=6270) 105 mg/dL 70-110 TESTED AT [place] [id number] [facility] [address] POCT-GLUCOSE [id number] 12:54:00* Test Item Value Reference Range Comments POC-GLUCOSE METER (BEAKER) (test rjmf=8649) 107 mg/dL 70-110 TESTED AT [address] [address] TROPONIN [id number] 08:19:00* Test Item Value Reference Range Comments TROPONIN I (BEAKER) (test dbcm=519) 0.02 ng/mL 0.00-0.03 Troponin I (TnI) levels must be interpreted [...] failure, acidosis, acute neurological disease, and persistent tachyarrhythmia.CALCIUM, [id number] 05:34:00* Test Item Value Reference Range Comments CALCIUM IONIZED (BEAKER) (test xzfa=286) 1.14 mmol/L 1.12-1.27 PH, BLOOD (BEAKER) (test ueim=4795) 7.46 PROTHROMBIN [id number] 05:34:00* Test Item Value Reference Range Comments PROTIME (BEAKER) (test fuus=250) 15.3 seconds 11.7-14.7 INR (BEAKER) (test bxxr=484) 1.2 <=5.9 RECOMMENDED COUMADIN/WARFARIN INR THERAPY RANGESSTANDARD DOSE: 2.0 - 3.0 Includes: PROPHYLAXIS for venous thrombosis, systemic embolization; TREATMENT for venous thrombosis and/or pulmonary embolus.HIGH RISK: Target INR is 2.5-3.5 for patients with mechanical heart valves.[id number] 05:32:00* Test Item Value Reference Range Comments MAGNESIUM (BEAKER) (test eowj=354) 1.9 mg/dL 1.6-2.6 BASIC METABOLIC [id number] 05:32:00* Test Item Value Reference Range Comments SODIUM (BEAKER) (test xqku=946) 140 meq/L 136-145 POTASSIUM (BEAKER) (test yzeo=219) 3.9 meq/L 3.5-5.1 CHLORIDE (BEAKER) (test pzxe=378) 104 meq/L 98-107 CO2 (BEAKER) (test mqjr=649) 23 meq/L 22-29 BLOOD UREA NITROGEN (BEAKER) (test cnem=089) 14 mg/dL 7-21 CREATININE (BEAKER) (test xhkn=162) 0.88 mg/dL 0.57-1.25 GLUCOSE RANDOM (BEAKER) (test jlns=011) 108 mg/dL 70-105 CALCIUM (BEAKER) (test flhx=240) 9.7 mg/dL 8.4-10.2 EGFR (BEAKER) (test duib=4678) 62 mL/min/1.73 sq m ESTIMATED GFR IS NOT ACCURATE CREATININE CLEARANCE IN PREDICTING GLOMERULAR FILTRATION RATE. ESTIMATED GFR IS NOT APPLICABLE FOR DIALYSIS PATIENTS. LIPID [id number] 05:32:00* Test Item Value Reference Range Comments TRIGLYCERIDES (BEAKER) (test xpng=041) 130 mg/dL CHOLESTEROL (BEAKER) (test erxm=187) 133 mg/dL HDL CHOLESTEROL (BEAKER) (test hpvk=164) 29 mg/dL LDL CHOLESTEROL CALCULATED (BEAKER) (test cgky=280) 78 mg/dL Triglyceride Reference Range: Low Risk <150 Borderline 150-199 High Risk 200-499 Very High Risk >=500Cholesterol Reference Range: Low Risk <200 Borderline 200-239 High Risk >240HDL Cholesterol Reference Range: Low Risk >=60 High Risk <40LDL Cholesterol Reference Range: Optimal <100 Near Optimal 100-129 Borderline 130-159 High 160-189 Very High >=190 HEPATIC FUNCTION [id number] 05:32:00* Test Item Value Reference Range Comments TOTAL PROTEIN (BEAKER) (test rptf=700) 7.5 gm/dL 6.0-8.3 ALBUMIN (BEAKER) (test pisj=2272) 4.0 g/dL 3.5-5.0 BILIRUBIN TOTAL (BEAKER) (test svzv=533) 1.0 mg/dL 0.2-1.2 BILIRUBIN DIRECT (BEAKER) (test aifg=487) 0.4 mg/dL 0.1-0.5 ALKALINE PHOSPHATASE (BEAKER) (test kypm=246) 56 U/L 40-150 AST (SGOT) (BEAKER) (test sjcp=999) 21 U/L 5-34 ALT (SGPT) (BEAKER) (test newt=708) 27 U/L 6-55 CBC W/PLT COUNT & AUTO [id number] 05:21:00* Test Item Value Reference Range Comments WHITE BLOOD CELL COUNT (BEAKER) (test cycb=491) 7.2 K/ L 3.5-10.5 RED BLOOD CELL COUNT (BEAKER) (test rsym=684) 3.48 M/ L 3.93-5.22 HEMOGLOBIN (BEAKER) (test bemv=685) 10.6 GM/DL 11.2-15.7 HEMATOCRIT (BEAKER) (test xibq=707) 32.8 % 34.1-44.9 MEAN CORPUSCULAR VOLUME (BEAKER) (test vrpa=208) 94.3 fL 79.4-94.8 MEAN CORPUSCULAR HEMOGLOBIN (BEAKER) (test icna=512) 30.5 pg 25.6-32.2 MEAN CORPUSCULAR HEMOGLOBIN CONC (BEAKER) (test ckoo=661) 32.3 GM/DL 32.2- 35.5 RED CELL DISTRIBUTION WIDTH (BEAKER) (test kiqd=884) 12.7 % 11.7-14.4 PLATELET COUNT (BEAKER) (test lozb=996) 238 K/CU MM 150-450 MEAN PLATELET VOLUME (BEAKER) (test pivm=720) 9.8 fL 9.4-12.3 NUCLEATED RED BLOOD CELLS (BEAKER) (test xzvz=973) 0 /100 WBC 0-0 NEUTROPHILS RELATIVE PERCENT (BEAKER) (test utxf=019) 54 % LYMPHOCYTES RELATIVE PERCENT (BEAKER) (test wkij=584) 31 % MONOCYTES RELATIVE PERCENT (BEAKER) (test sldl=918) 10 % EOSINOPHILS RELATIVE PERCENT (BEAKER) (test pgyy=665) 4 % BASOPHILS RELATIVE PERCENT (BEAKER) (test ndmo=777) 1 % NEUTROPHILS ABSOLUTE COUNT (BEAKER) (test fiwk=901) 3.93 K/ L 1.56-6.13 LYMPHOCYTES ABSOLUTE COUNT (BEAKER) (test ldza=126) 2.26 K/ L 1.18-3.74 MONOCYTES ABSOLUTE COUNT (BEAKER) (test lkvz=934) 0.72 K/ L 0.24-0.36 EOSINOPHILS ABSOLUTE COUNT (BEAKER) (test cift=415) 0.25 K/ L 0.04-0.36 BASOPHILS ABSOLUTE COUNT (BEAKER) (test wzwy=196) 0.04 K/ L 0.01-0.08 IMMATURE GRANULOCYTES-RELATIVE PERCENT (BEAKER) (test sqfi=8983) 0 % 0-1 TROPONIN [id number] 03:36:00* Test Item Value Reference Range Comments TROPONIN I (BEAKER) (test yldn=767) 0.01 ng/mL 0.00-0.03 Troponin I (TnI) levels must be interpreted [...] failure, acidosis, acute neurological disease, and persistent tachyarrhythmia.RAD, CHEST, 1 VIEW, NON [id number] 17:50:00Reason for exam:->chest painShould this be performed at the bedside?-> YesFINAL REPORT TECHNIQUE: Frontal view of the chest. INDICATION: 77-year-old woman with chest pain. COMPARISON: None. FINDINGS: LINES/TUBES: None. LUNGS: Streaky opacities in the left lower lung zone. Right lung is clear. PLEURA: No pneumothorax or significant pleural effusion. HEART AND MEDIASTINUM: The cardiomediastinal silhouette is enlarged. Atherosclerotic calcifications in the tortuous/ectatic thoracic aorta. SOFT TISSUES AND BONES: Unremarkable. IMPRESSION:Left lower lung zone opacities, likely atelectasis. Pneumonia/aspiration cannot be excluded. Otherwise, no acute cardiopulmonary abnormalities. Signed: Andrey Sanchez MDReport Verified Date/Time: 05/26/2017 17:50:40 Reading Location: [place] [id number] Consult Reading Room [id number] 17:00: 00* Test Item Value Reference Range Comments THYROID STIMULATING HORMONE (DANNY) (test xjua=564) 2.09 uIU/mL 0.35-4.94 TROPONIN [id number] 16:44:00* Test Item Value Reference Range Comments TROPONIN I (IRAAKER) (test iyfp=335) 0.02 ng/mL 0.00-0.03 Troponin I (TnI) levels must be interpreted [...] failure, acidosis, acute neurological disease, and persistent tachyarrhythmia.B-TYPE NATRIURETIC FACTOR (BNP) 16:43:00* Test Item Value Reference Range Comments B-TYPE NATRIURETIC PEPTIDE (BEAKER) (test mnnj=434) 567 pg/mL 0-100 URINALYSIS [id number] 16:38:00* Test Item Value Reference Range Comments RBC UA (BEAKER) (test qwpd=388) < /HPF WBC UA (BEAKER) (test mdkh=085) 2 /HPF SQUAMOUS EPITHELIAL (BEAKER) (test rnrt=646) < /HPF [id number] 16:37:00* Test Item Value Reference Range Comments MAGNESIUM (BEAKER) (test apte=499) 2.3 mg/dL 1.6-2.6 Specimen slightly hemolyzed COMPREHENSIVE METABOLIC [id number] 16:37:00* Test Item Value Reference Range Comments TOTAL PROTEIN (BEAKER) (test rvzh=875) 7.5 gm/dL 6.0-8.3 Specimen slightly hemolyzed ALBUMIN (BEAKER) (test xbcp=7441) 3.9 g/dL 3.5-5.0 Specimen slightly hemolyzed ALKALINE PHOSPHATASE (BEAKER) (test xqyf=400) 55 U/L 40-150 BILIRUBIN TOTAL (BEAKER) (test jclw=865) 0.6 mg/dL 0.2-1.2 Specimen slightly hemolyzed SODIUM (BEAKER) (test xrmu=456) 139 meq/L 136-145 POTASSIUM (BEAKER) (test xnot=714) 4.8 meq/L 3.5-5.1 Specimen slightly hemolyzed CHLORIDE (BEAKER) (test ivua=856) 108 meq/L 98-107 CO2 (BEAKER) (test jfcw=686) 21 meq/L 22-29 BLOOD UREA NITROGEN (BEAKER) (test cqnf=322) 12 mg/dL 7-21 CREATININE (BEAKER) (test bkqx=809) 0.81 mg/dL 0.57-1.25 Specimen slightly hemolyzed GLUCOSE RANDOM (BEAKER) (test harj=288) 91 mg/dL 70-105 CALCIUM (BEAKER) (test ofjz=408) 9.6 mg/dL 8.4-10.2 AST (SGOT) (BEAKER) (test xxgn=186) 29 U/L 5-34 Specimen slightly hemolyzed ALT (SGPT) (BEAKER) (test azwe=494) 30 U/L 6-55 Specimen slightly hemolyzed EGFR (BEAKER) (test azxr=4902) 68 mL/min/1.73 sq m ESTIMATED GFR IS NOT ACCURATE CREATININE CLEARANCE IN PREDICTING GLOMERULAR FILTRATION RATE. ESTIMATED GFR IS NOT APPLICABLE FOR DIALYSIS PATIENTS. URINALYSIS WITH MICROSCOPIC IF [id number] 16:35:00* Test Item Value Reference Range Comments COLOR (BEAKER) (test vwiw=372) Light Yellow CLARITY (BEAKER) (test gilz=323) Clear SPECIFIC GRAVITY UA (BEAKER) (test isyg=140) 1.005 1.001-1.035 PH UA (BEAKER) (test siup=653) 6.0 5.0-8.0 PROTEIN UA (BEAKER) (test svic=736) Negative Negative GLUCOSE UA (BEAKER) (test afzc=162) Negative Negative KETONES UA (BEAKER) (test syvf=049) Negative Negative BILIRUBIN UA (BEAKER) (test tqte=155) Negative Negative BLOOD UA (BEAKER) (test xpoc=257) Negative Negative NITRITE UA (BEAKER) (test bcwj=845) Negative Negative LEUKOCYTE ESTERASE UA (BEAKER) (test mphj=517) Moderate Negative UROBILINOGEN UA (BEAKER) (test clun=285) 0.2 mg/dL 0.2-1.0 SOURCE(BEAKER) (test lmoc=3090) PT/[id number] 15:52:00* Test Item Value Reference Range Comments PROTIME (BEAKER) (test nefc=333) 15.5 seconds 11.7-14.7 INR (BEAKER) (test omgm=972) 1.2 <=5.9 PARTIAL THROMBOPLASTIN TIME (BEAKER) (test jxwg=213) 32.3 seconds 22.5-36.0 RECOMMENDED COUMADIN/WARFARIN INR THERAPY RANGESSTANDARD DOSE: 2.0 - 3.0 Includes: PROPHYLAXIS for venous thrombosis, systemic embolization; TREATMENT for venous thrombosis and/or pulmonary embolus.HIGH RISK: Target INR is 2.5-3.5 for patients with mechanical heart valves.CBC W/PLT COUNT & AUTO [id number] 15:40:00* Test Item Value Reference Range Comments WHITE BLOOD CELL COUNT (BEAKER) (test qtqr=233) 6.8 K/ L 3.5-10.5 RED BLOOD CELL COUNT (BEAKER) (test bkpg=401) 3.35 M/ L 3.93-5.22 HEMOGLOBIN (BEAKER) (test nzln=272) 10.3 GM/DL 11.2-15.7 HEMATOCRIT (BEAKER) (test xiin=566) 32.6 % 34.1-44.9 MEAN CORPUSCULAR VOLUME (BEAKER) (test rvfc=034) 97.3 fL 79.4-94.8 MEAN CORPUSCULAR HEMOGLOBIN (BEAKER) (test xgpo=621) 30.7 pg 25.6-32.2 MEAN CORPUSCULAR HEMOGLOBIN CONC (BEAKER) (test mhil=198) 31.6 GM/DL 32.2- 35.5 RED CELL DISTRIBUTION WIDTH (BEAKER) (test nfdn=237) 12.8 % 11.7-14.4 PLATELET COUNT (BEAKER) (test zoby=018) 250 K/CU MM 150-450 MEAN PLATELET VOLUME (BEAKER) (test zrtf=094) 10.0 fL 9.4-12.3 NUCLEATED RED BLOOD CELLS (BEAKER) (test ybef=699) 0 /100 WBC 0-0 NEUTROPHILS RELATIVE PERCENT (BEAKER) (test abjc=217) 61 % LYMPHOCYTES RELATIVE PERCENT (BEAKER) (test ibtz=100) 27 % MONOCYTES RELATIVE PERCENT (BEAKER) (test ppwu=161) 9 % EOSINOPHILS RELATIVE PERCENT (BEAKER) (test ykrz=709) 3 % BASOPHILS RELATIVE PERCENT (BEAKER) (test gllm=630) 0 % NEUTROPHILS ABSOLUTE COUNT (BEAKER) (test xolx=555) 4.12 K/ L 1.56-6.13 LYMPHOCYTES ABSOLUTE COUNT (BEAKER) (test ifui=535) 1.86 K/ L 1.18-3.74 MONOCYTES ABSOLUTE COUNT (BEAKER) (test yceb=526) 0.58 K/ L 0.24-0.36 EOSINOPHILS ABSOLUTE COUNT (BEAKER) (test knpu=200) 0.18 K/ L 0.04-0.36 BASOPHILS ABSOLUTE COUNT (BEAKER) (test wdvi=173) 0.03 K/ L 0.01-0.08 IMMATURE GRANULOCYTES-RELATIVE PERCENT (BEAKER) (test dntn=3006) 0 % 0-1
[2017-07-27] MEDS ORDERED: TETANUS/DIPHTHERIA TOX ADULT 0.5 ML SYR IM ONE (13:45)
== END 2017-07-27 13:55 | disposition home or self-care (01) ==
LOC: FSED 13:01
DX: R04.0 Epistaxis (principal); W18.39XA Other fall on same level, initial encounter; E11.9 Type 2 diabetes mellitus without complications; I48.91 Unspecified atrial fibrillation; I50.9 Heart failure, unspecified; Z95.0 Presence of cardiac pacemaker
CPT/HCPCS: 90471; 90714; 99284

== ENCOUNTER 2019-05-03 11:52 | Emergency (ER) | payer MEDICARE, BC ==
[~2019-05-03] VITALS: Ht 172.7 cm; Wt 82.3 kg
--- OUTSIDE RECORDS SUMMARY | 2019-05-03 11:55 | XMS REPORT | Summary of Care ---
Author Author [facility] Organization [facility] Address Unknown Phone Unavailable Care Team Providers Care Hand Ironer Name Role Phone PCP Unavailable Reason for Visit * Reason Comments Cardiology Follow-up Encounter Details Care Team Description Date Type Department Semaj Quevedo MD [address] [facility] [address] [place], [place] [id number] Cardiology Follow-up 12/14/2018 Office Visit [facility] [address] [facility] [address] [place] [address] Allergies No Known Allergiesdocumented as of this encounter (statuses as of 12/14/2018) Medications End Date Status Medication Sig Dispensed Refills Start Date Active metformin (GLUCOPHAGE) Take 500 mg 0 500 MG tablet by mouth daily. Active fluticasone (FLONASE) 50 2 Sprays by 0 MCG/ACT nasal spray Each Nostril route as needed. Active Acetaminophen (TYLENOL 8 Take 1,000 mg 0 HOUR OR) by mouth daily. Active Sacubitril-Valsartan Take 21 mg by 60 Tab 11 (ENTRESTO) 24-26 MG TABS mouth two 8 times daily. Active Ferrous Sulfate (SLOW FE Take by 0 OR) mouth daily. Active Sodium Chloride-Sodium by Nasal 0 Bicarb (AYR SALINE NASAL route two RINSE NA) times daily. Active spironolactone Take 1 Tab by 30 Tab 11 (ALDACTONE) 25 MG tablet mouth daily. 8 Active digoxin (LANOXIN) 250 MCG Take 1 Tab by 30 Tab 11 tablet mouth daily. 8 Active furosemide (LASIX) 40 MG Take 1 Tab by 30 Tab 11 tablet mouth daily. 8 Active carvedilol (COREG) 25 MG TAKE 1 TABLET 180 Tab 2 tablet BY MOUTH 9 TWICE DAILY Active Rivaroxaban (XARELTO) 20 Take 20 mg by 0 MG TABS mouth daily. 12/14/2018 Discontinued gentamicin (GARAMYCIN) 80 80 mg once. 0 MG/ML injection documented as of this encounter (statuses as of 12/14/2018) Active Problems Patient Care Coordination Note Flaquito Singh [phone] Problem Noted Date Anemia 10/13/2017 Last Assessment & Plan: Cbc ordered. Palpitations 10/06/2017 Non-rheumatic mitral regurgitation 10/06/2017 Last Assessment & Plan: Mild to moderate MR by Echo 08/2018. Tricuspid valve insufficiency 10/06/2017 Last Assessment & Plan: Mild to moderate by echo 08/2018. GARCIA (dyspnea on exertion) 09/25/2017 Last Assessment & Plan: Significantly improved. Cardiac pacemaker in situ 06/06/2017 Last Assessment & Plan: Interrogation today shows normal parameters, Vitaly life of 8.5 years, and brief episodes of probable NSVT. She is pacing 95% in the ventricle with chronic atrial fibrillation. 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 termite helper current use of anticoagulant 06/06/2017 Overview: Off anticoagulant now because R/B favors stopping it. L ast Assessment & Plan: Will restart Xarelto. She is to see Dr. Quevedo regarding Watchman implant. 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 Chronic atrial fibrillation (HCCode) 06/06/2017 Last Assessment & Plan: Asymtomatic on the current level of activity and medical regimen. Am still concerned about stroke risk. Will discuss Watchman at next visit. Chronic systolic congestive heart failure (HCCode) 11/06/2016 Last Assessment & Plan: EF by echo 08/2018: 40-45%. Compensated at NYHA II level. Diabetes 1.5, managed as type 2 (HCCode) 11/01/2015 Last Assessment & Plan: Asymptomatic for now on medical treatment. Left carotid bruit 11/01/2015 Last Assessment & Plan: Asymptomatic. Carotid duplex ordered. Essential hypertension 05/10/2015 Last Assessment & Plan: Controlled on the current regimen. Cardiomyopathy (HCCode) 05/10/2015 Last Assessment & Plan: Appears stable at her current level of activity. documented as of this encounter (statuses as of 12/14/2018) Resolved Problems Problem Noted Date Resolved Date Orthostatic hypotension 12/30/2017 02/04/2018 Last Assessment & Plan: Will stop furosemide and decrease spironolactone to 25 mg daily. documented as of this encounter (statuses as of 12/14/2018) Social History Date Tobacco Use Types Packs/Day Years Used Never Smoker Smokeless Tobacco: Never Used Drinks/Week oz/Week Comments Alcohol Use No Sex Assigned at Date Recorded Not on file Industry Job Start Date Occupation Not on file Not on file Not on file Travel End Travel History Travel Start No recent travel history available. documented as of this encounter Last Filed Vital Signs Reading Time Taken Comments Vital Sign 82/62 12/14/2018 11:10 AM CDT Blood Pressure 72 12/14/2018 10:56 AM CDT Pulse - - Temperature - - Respiratory Rate - - Oxygen Saturation - - Inhaled Oxygen Concentration 83 kg (183 lb) 12/14/2018 10:56 AM CDT Weight 172.7 cm (5' 8") 12/14/2018 10:56 AM CDT Height 27.83 12/14/2018 10:56 AM CDT Body Mass Index documented in this encounter Progress Notes * Semaj Quevedo MD - 12/14/2018 11:00 AM CDT Chief Complaint Patient presents with Cardiology Follow-up History of Present Illness: This is an 78 year old female with HTN,DM,CMP,Chronic AF,Mild MR and TR,[facility] Age 1,Female 1,HTN 1,DM 1 CMP 1: 6 who had recurrent falls and nose bleed.She never had transfusion and anemia resolved with iron supplement. The patient has a Qubulustronic PPM.She is back on Xarelto. Review of Systems HG Cardiology ROS General: insomnia Cardiovascular: shortness of breath on exertion Musculoskeletal: joint pain, arthritis Endocrine: diabetes General: insomnia Cardiovascular: shortness of breath on exertion Musculoskeletal: joint pain, arthritis Endocrine: diabetes Medications: Acetaminophen (TYLENOL 8 HOUR OR) Take 1,000 mg by mouth daily. carvedilol (COREG) 25 MG tablet TAKE 1 TABLET BY MOUTH TWICE DAILY digoxin (LANOXIN) 250 MCG tablet Take 1 Tab by mouth daily. Ferrous Sulfate (SLOW FE OR) Take by mouth daily. fluticasone (FLONASE) 50 MCG/ACT nasal spray 2 Sprays by Each Nostril route as needed. furosemide (LASIX) 40 MG tablet Take 1 Tab by mouth daily. metformin (GLUCOPHAGE) 500 MG tablet Take 500 mg by mouth daily. Rivaroxaban (XARELTO) 20 MG TABS Take 20 mg by mouth daily. Sacubitril-Valsartan (ENTRESTO) 24-26 MG TABS Take 21 mg by mouth two times daily. Sodium Chloride-Sodium Bicarb (AYR SALINE NASAL RINSE NA) by Nasal route two times daily. spironolactone (ALDACTONE) 25 MG tablet Take 1 Tab by mouth daily. (Patient taking differently: Take 25 mg by mouth two times daily.) No Known Allergies Past Medical History: Diagnosis Date Allergic rhinitis Cataracts, bilateral Chronic systolic congestive heart failure (HCCode) Chronic systolic heart failure (HCCode) Degenerative arthritis Dysgeusia Syncope and collapse Past Surgical History: Procedure Laterality Date HX BREAST BIOPSY-L Bilateral benign, multiple HX D&C 1989 dysfunctional uterine bleeding HX KNEE ARTHROSCOPY Bilateral HX PACEMAKER PLACEMENT Left 05/2017 Can'tWait single chamber MRI compatible device. HX TOTAL KNEE REPLACEMENT Bilateral HX VENTRAL HERNIA REPAIR 1948 lower abdominal hernia repair. Family History Problem Relation Name Age of Onset Coronary Artery Disease Mother Diabetes Mother Social History Socioeconomic History Marital status: Spouse name: Not on file Number of children: Not on file Years of education: Not on file Highest education level: Not on file Occupational History Occupation: retired Social Needs Financial resource strain: Not on file Food insecurity: Worry: Not on file Inability: Not on file Transportation needs: Medical: Not on file Non-medical: Not on file Tobacco Use Smoking status: Never Smoker Smokeless tobacco: Never Used Substance and Sexual Activity Alcohol use: No Drug use: No Sexual activity: Not on file Lifestyle Physical activity: Days per week: Not on file Minutes per session: Not on file Stress: Not on file Relationships Social connections: Talks on phone: Not on file Gets together: Not on file Attends sabianist service: Not on file Active member of club or organization: Not on file Attends meetings of clubs or organizations: Not on file Relationship status: Not on file Intimate partner violence: Fear of current or ex partner: Not on file Emotionally abused: Not on file Physically abused: Not on file Forced sexual activity: Not on file Other Topics Concerns: Not on file Social History Narrative Not on file I have reviewed the PMH, SH, FHX, ROS, MEDS, ALLERGIES and updated the [facility] patient record appropriately. Physical Exam - BP (!) 82/62 (BP Location: left arm, Patient Position: Sitting) | Pulse 72 | H t 5' 8" (1.727 m) | Wt 183 lb (83 kg) | BMI 27.83 kg/m General Appearance: Alert, cooperative, no distress, appears stated age Head: Normocephalic, without obvious abnormality, atraumatic Eyes: PERRL, conjunctiva/corneas clear, EOM's intact, fundi Oral: Lips, mucosa, and tongue normal; teeth and gums normal Neck: Supple, symmetrical, trachea midline, no adenopathy; thyroid: No enlargement/tenderness/nodules; carotid Bruit absent JVD: Appears normal Back: Symmetric, no curvature Lungs: Clear to auscultation bilaterally, respirations unlabored Chest wall: No tenderness or deformity Heart: Regular rate and rhythm, S1S2 present or without murmur or extra heart sounds Abdomen: Soft, non-tender, bowel sounds active all four quadrants, no masses, no organomegaly Extremities: Extremities normal, atraumatic, no cyanosis or edema Peripheral Artery: Carotid, radial, femoral, popliteal, pedal. Normal Skin: Skin color, texture, turgor normal, no rashes or lesions Neurologic: CNII-XII intact. 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, managed as type 2 (HCCode) Other cardiomyopathy (HCCode) Chronic atrial fibrillation (HCCode) Non-rheumatic tricuspid valve insufficiency Non-rheumatic mitral regurgitation USP current use of anticoagulant Cardiac pacemaker in situ Chronic systolic congestive heart failure (HCCode) Permanent AF CHADS Vasc 6 Recurrent falls Recurrent Epistaxis Plan for AZALIA Patient is a good candidate for short term OAC therapy but at high risk for mcfp OAC Risks and benefits of Watchman procedure were explained to the patient in great details Semaj Quevedo MD documented in this encounter Plan of Treatment Date/Time Name Type Priority Associated Diagnoses 12/14/2018 11:01 AM CDT ELECTROCARDIOGRAM ECG Routine SOB (shortness of breath) COMPLETE on exertion Health Maintenance Due Date Last Done Comments MEDICARE AWV 1938 TETANUS SHOT (ADULT) 1953 ANNUAL DIABETIC FOOT EXAM 1956 ANNUAL DIABETIC 1956 RETINOPATHY SCREENING BMI FOLLOW UP PLAN 1956 FALL SCREEN 2003 OSTEOPOROSIS SCREENING 2003 PNEUMOVAX >=65 (PPSV23) 2003 PREVNAR >=65 (PCV13) 2003 FLU VACCINE > 6 MONTHS 10/15/2018 documented as of this encounter Results Not on filedocumented in this encounter Visit Diagnoses Diagnosis SOB (shortness of breath) on exertion - Primary Shortness of breath Essential hypertension Unspecified essential hypertension Iron deficiency anemia due to chronic blood loss Iron deficiency anemia secondary to blood loss (chronic) Diabetes 1.5, managed as type 2 (HCCode) Other cardiomyopathy (HCCode) Chronic atrial fibrillation Atrial fibrillation Non-rheumatic tricuspid valve insufficiency Tricuspid valve disorders, specified as nonrheumatic Non-rheumatic mitral regurgitation USP current use of anticoagulant Encounter for long-term (current) use of anticoagulants Cardiac pacemaker in situ Chronic systolic congestive heart failure (HCCode) Chronic systolic heart failure documented in this encounter Insurance Type Payer Benefit Subscriber ID Effective Phone Address Plan / Dates Group Medicare MEDICARE MEDICARE xxxxxxxxxxx 2003- [address] Present [id number] [place] [address] documented as of this encounter
--- OUTSIDE RECORDS SUMMARY | 2019-05-03 11:55 | XMS REPORT ---
Author Author [facility] Address Unknown Phone Unavailable Care Team Providers [facility] Name Role Phone JYOTHI ALVES Unavailable Unavailable NICOL LEIVA Unavailable Unavailable ELLEN NORMAN Unavailable Unavailable Problems This patient has no known problems. Allergies, Adverse Reactions, Alerts This patient has no known allergies or adverse reactions. Medications This patient has no known medications. Results Test Description Test Time Test Comments Text Results Atomic Results Result Comments CBC W/PLT COUNT & AUTO DIFFERENTIAL 2019-04-07 08:54:00 WHITE BLOOD CELL COUNT (BEAKER) (test vkef=335) 8.4 K/ L 3.5-10.5 RED BLOOD CELL COUNT (BEAKER) (test lmrs=028) 3.07 M/ L 3.93-5.22 HEMOGLOBIN (BEAKER) (test ruzi=159) 9.7 GM/DL 11.2-15.7 HEMATOCRIT (BEAKER) (test zdne=811) 29.3 % 34.1-44.9 MEAN CORPUSCULAR VOLUME (BEAKER) (test remy=283) 95.4 fL 79.4-94.8 MEAN CORPUSCULAR HEMOGLOBIN (BEAKER) (test fgec=723) 31.6 pg 25.6-32.2 MEAN CORPUSCULAR HEMOGLOBIN CONC (BEAKER) (test rcrk=457) 33.1 GM/DL 32.2-35.5 RED CELL DISTRIBUTION WIDTH (BEAKER) (test qedy=458) 13.3 % 11.7-14.4 PLATELET COUNT (BEAKER) (test oxnq=178) 228 K/CU MM 150-450 MEAN PLATELET VOLUME (BEAKER) (test shlg=689) 9.2 fL 9.4-12.3 NUCLEATED RED BLOOD CELLS (BEAKER) (test egki=324) 0 /100 WBC 0-0 NEUTROPHILS RELATIVE PERCENT (BEAKER) (test nqhm=718) 71 % LYMPHOCYTES RELATIVE PERCENT (BEAKER) (test dsdc=200) 18 % MONOCYTES RELATIVE PERCENT (BEAKER) (test xivr=549) 8 % EOSINOPHILS RELATIVE PERCENT (BEAKER) (test znji=380) 3 % BASOPHILS RELATIVE PERCENT (BEAKER) (test rnbv=777) 1 % NEUTROPHILS ABSOLUTE COUNT (BEAKER) (test wftv=242) 5.97 K/ L 1.56-6.13 LYMPHOCYTES ABSOLUTE COUNT (BEAKER) (test mjvq=779) 1.51 K/ L 1.18-3.74 MONOCYTES ABSOLUTE COUNT (BEAKER) (test llup=318) 0.68 K/ L 0.24-0.36 EOSINOPHILS ABSOLUTE COUNT (BEAKER) (test vyjr=320) 0.22 K/ L 0.04-0.36 BASOPHILS ABSOLUTE COUNT (BEAKER) (test cndz=696) 0.04 K/ L 0.01-0.08 IMMATURE GRANULOCYTES-RELATIVE PERCENT (BEAKER) (test oivw=5637) 0 % 0-1 BASIC METABOLIC [id number] 09:10:00* Test Item Value Reference Range Comments SODIUM (BEAKER) (test duha=281) 135 meq/L 136-145 POTASSIUM (BEAKER) (test oggw=537) 4.0 meq/L 3.5-5.1 CHLORIDE (BEAKER) (test qshx=072) 104 meq/L 98-107 CO2 (BEAKER) (test xtco=563) 23 meq/L 22-29 BLOOD UREA NITROGEN (BEAKER) (test ijyq=789) 18 mg/dL 7-21 CREATININE (BEAKER) (test iyfx=791) 1.12 mg/dL 0.57-1.25 GLUCOSE RANDOM (BEAKER) (test jiyc=700) 143 mg/dL 70-105 CALCIUM (BEAKER) (test jinc=105) 8.6 mg/dL 8.4-10.2 EGFR (BEAKER) (test zbwz=9437) 47 mL/min/1.73 sq m ESTIMATED GFR IS NOT ACCURATE CREATININE CLEARANCE IN PREDICTING GLOMERULAR FILTRATION RATE. ESTIMATED GFR IS NOT APPLICABLE FOR DIALYSIS PATIENTS. POCT-GLUCOSE [id number] 08:23:00* Test Item Value Reference Range Comments POC-GLUCOSE METER (BEAKER) (test ayow=6204) 142 mg/dL 70-110 : TESTED AT [facility] [address] [facility], [address]: Women'S Lacrosse Coach/Water Operator [id number] for VALENTÍN JUAREZ BASIC METABOLIC [id number] 17:44:00* Test Item Value Reference Range Comments SODIUM (BEAKER) (test zypn=276) 136 meq/L 136-145 POTASSIUM (BEAKER) (test gzxr=486) 3.7 meq/L 3.5-5.1 CHLORIDE (BEAKER) (test nirj=996) 103 meq/L 98-107 CO2 (BEAKER) (test jhyv=271) 25 meq/L 22-29 BLOOD UREA NITROGEN (BEAKER) (test bkqp=671) 20 mg/dL 7-21 CREATININE (BEAKER) (test eyty=110) 1.51 mg/dL 0.57-1.25 GLUCOSE RANDOM (BEAKER) (test dlik=941) 114 mg/dL 70-105 CALCIUM (BEAKER) (test zvkz=885) 8.6 mg/dL 8.4-10.2 EGFR (BEAKER) (test uzml=6768) 33 mL/min/1.73 sq m ESTIMATED GFR IS NOT ACCURATE CREATININE CLEARANCE IN PREDICTING GLOMERULAR FILTRATION RATE. ESTIMATED GFR IS NOT APPLICABLE FOR DIALYSIS PATIENTS. POCT-GLUCOSE [id number] 11:54:00* Test Item Value Reference Range Comments POC-GLUCOSE METER (BEAKER) (test tlru=9727) 95 mg/dL 70-110 : TESTED AT [address], [address]: Women'S Lacrosse Coach/Water Operator [id number]=[id number] for VALENTÍN JUAREZ POCT-GLUCOSE [id number] 07:18:00* Test Item Value Reference Range Comments POC-GLUCOSE METER (BEAKER) (test vszg=9429) 101 mg/dL 70-110 : Notified RN/MD: TESTED AT [address], [address]: Women'S Lacrosse Coach/Water Operator [id number] for SHERICE SOLANO [id number] 07:13:00* Test Item Value Reference Range Comments MAGNESIUM (BEAKER) (test lqis=557) 1.9 mg/dL 1.6-2.6 BASIC METABOLIC [id number] 10:39:00* Test Item Value Reference Range Comments SODIUM (BEAKER) (test bwes=253) 132 meq/L 136-145 POTASSIUM (BEAKER) (test gczi=026) 4.6 meq/L 3.5-5.1 CHLORIDE (BEAKER) (test zxjg=309) 102 meq/L 98-107 CO2 (BEAKER) (test wjvh=817) 23 meq/L 22-29 BLOOD UREA NITROGEN (BEAKER) (test pfkb=576) 23 mg/dL 7-21 CREATININE (BEAKER) (test ndlb=146) 1.50 mg/dL 0.57-1.25 GLUCOSE RANDOM (BEAKER) (test rpfx=183) 108 mg/dL 70-105 CALCIUM (BEAKER) (test bqgf=172) 9.8 mg/dL 8.4-10.2 EGFR (BEAKER) (test sfdl=3776) 33 mL/min/1.73 sq m ESTIMATED GFR IS NOT ACCURATE CREATININE CLEARANCE IN PREDICTING GLOMERULAR FILTRATION RATE. ESTIMATED GFR IS NOT APPLICABLE FOR DIALYSIS PATIENTS. COMPREHENSIVE METABOLIC [id number] 14:03:00* Test Item Value Reference Range Comments TOTAL PROTEIN (BEAKER) (test ttab=361) 8.5 gm/dL 6.0-8.3 ALBUMIN (BEAKER) (test mhbg=8240) 4.3 g/dL 3.5-5.0 ALKALINE PHOSPHATASE (BEAKER) (test urpb=744) 74 U/L 40-150 BILIRUBIN TOTAL (BEAKER) (test dcji=796) 0.5 mg/dL 0.2-1.2 SODIUM (BEAKER) (test vdvf=618) 131 meq/L 136-145 POTASSIUM (BEAKER) (test jziq=029) 6.1 meq/L 3.5-5.1 CHLORIDE (BEAKER) (test bgiy=313) 100 meq/L 98-107 CO2 (BEAKER) (test snws=441) 22 meq/L 22-29 BLOOD UREA NITROGEN (BEAKER) (test vkwd=873) 27 mg/dL 7-21 CREATININE (BEAKER) (test yryr=254) 1.52 mg/dL 0.57-1.25 GLUCOSE RANDOM (BEAKER) (test knzb=681) 93 mg/dL 70-105 CALCIUM (BEAKER) (test pdrn=768) 9.7 mg/dL 8.4-10.2 AST (SGOT) (BEAKER) (test yarl=602) 22 U/L 5-34 ALT (SGPT) (BEAKER) (test zerx=950) 18 U/L 6-55 EGFR (BEAKER) (test leuy=3707) 33 mL/min/1.73 sq m ESTIMATED GFR IS NOT ACCURATE CREATININE CLEARANCE IN PREDICTING GLOMERULAR FILTRATION RATE. ESTIMATED GFR IS NOT APPLICABLE FOR DIALYSIS PATIENTS. PROTHROMBIN [id number] 13:35:00* Test Item Value Reference Range Comments PROTIME (BEAKER) (test yejf=563) 29.2 seconds 11.9-14.2 INR (BEAKER) (test rrwq=917) 2.9 <=5.9 Effective 08/12/2018: PT Reference Range ChangeNew: 11.9-14.2 Previous: 11.7-14. 7RECOMMENDED COUMADIN/WARFARIN INR THERAPY RANGESSTANDARD DOSE: 2.0-3.0 Include s: PROPHYLAXIS for venous thrombosis, systemic embolization; TREATMENT for venou s thrombosis and/or pulmonary embolus.HIGH RISK: Target INR is 2.5-3.5 for patie nts wiht mechanical heart valves.CBC W/PLT COUNT & AUTO [id number] 13:20:00* Test Item Value Reference Range Comments WHITE BLOOD CELL COUNT (BEAKER) (test gein=791) 7.6 K/ L 3.5-10.5 RED BLOOD CELL COUNT (BEAKER) (test phoy=500) 3.41 M/ L 3.93-5.22 HEMOGLOBIN (BEAKER) (test gkqe=546) 11.1 GM/DL 11.2-15.7 HEMATOCRIT (BEAKER) (test hepv=212) 33.8 % 34.1-44.9 MEAN CORPUSCULAR VOLUME (BEAKER) (test coel=619) 99.1 fL 79.4-94.8 MEAN CORPUSCULAR HEMOGLOBIN (BEAKER) (test qgrs=459) 32.6 pg 25.6-32.2 MEAN CORPUSCULAR HEMOGLOBIN CONC (BEAKER) (test czag=162) 32.8 GM/DL 32.2-35.5 RED CELL DISTRIBUTION WIDTH (BEAKER) (test xbiu=531) 12.9 % 11.7-14.4 PLATELET COUNT (BEAKER) (test ixaz=252) 206 K/CU MM 150-450 MEAN PLATELET VOLUME (BEAKER) (test vseb=350) 9.9 fL 9.4-12.3 NUCLEATED RED BLOOD CELLS (BEAKER) (test abpy=032) 0 /100 WBC 0-0 NEUTROPHILS RELATIVE PERCENT (BEAKER) (test micy=285) 62 % LYMPHOCYTES RELATIVE PERCENT (BEAKER) (test hkhx=780) 23 % MONOCYTES RELATIVE PERCENT (BEAKER) (test znge=905) 9 % EOSINOPHILS RELATIVE PERCENT (BEAKER) (test kjpa=325) 4 % BASOPHILS RELATIVE PERCENT (BEAKER) (test kmnx=441) 1 % NEUTROPHILS ABSOLUTE COUNT (BEAKER) (test cggx=905) 4.76 K/ L 1.56-6.13 LYMPHOCYTES ABSOLUTE COUNT (BEAKER) (test bspi=509) 1.77 K/ L 1.18-3.74 MONOCYTES ABSOLUTE COUNT (BEAKER) (test gmns=235) 0.69 K/ L 0.24-0.36 EOSINOPHILS ABSOLUTE COUNT (BEAKER) (test njzn=191) 0.32 K/ L 0.04-0.36 BASOPHILS ABSOLUTE COUNT (BEAKER) (test ieow=751) 0.05 K/ L 0.01-0.08 IMMATURE GRANULOCYTES-RELATIVE PERCENT (BEAKER) (test odpx=8975) 1 % 0-1 DIGOXIN [id number] 12:46:00* Test Item Value Reference Range Comments DIGOXIN LEVEL (BEAKER) (test bnvd=079) 0.8 ng/mL 0.8-2.0 POCT-GLUCOSE [id number] 12:10:00* Test Item Value Reference Range Comments POC-GLUCOSE METER (BEAKER) (test abpt=8223) 111 mg/dL 70-[address] [facility] [address] [facility] [address] RAD, CHEST, 1 VIEW, NON [id number] 09:08:00Reason for exam:->post ppm insertionShould this be performed at the bedside?->YesFINAL REPORT COMPARISON: 05/29/2017 TECHNIQUE: Single view of the chest FINDINGS: Left retrocardiac density which may represent atelectasis or pneumonitis again noted. Otherwise lungs are clear. Cardiac silhouette is enlarged. Left-sided pacing device noted. IMPRESSION: No significant interval change from previous exam. Signed: Minda Dial MDReport Verified Date/Time: 05/30/2017 09:08:57 Reading Location: [facility] Radiology Reading Room [id number] 08:41:00* Test Item Value Reference Range Comments PHOSPHORUS (BEAKER) (test rnon=131) 3.3 mg/dL 2.3-4.7 [id number] 08:41:00* Test Item Value Reference Range Comments MAGNESIUM (BEAKER) (test aicw=999) 2.0 mg/dL 1.6-2.6 BASIC METABOLIC [id number] 08:41:00* Test Item Value Reference Range Comments SODIUM (BEAKER) (test hltb=484) 132 meq/L 136-145 POTASSIUM (BEAKER) (test jysm=230) 4.2 meq/L 3.5-5.1 CHLORIDE (BEAKER) (test meku=939) 103 meq/L 98-107 CO2 (BEAKER) (test bpqg=858) 17 meq/L 22-29 BLOOD UREA NITROGEN (BEAKER) (test psis=216) 18 mg/dL 7-21 CREATININE (BEAKER) (test rmhy=734) 0.76 mg/dL 0.57-1.25 GLUCOSE RANDOM (BEAKER) (test mowl=760) 121 mg/dL 70-105 CALCIUM (BEAKER) (test clfm=865) 9.5 mg/dL 8.4-10.2 EGFR (BEAKER) (test eela=7690) 73 mL/min/1.73 sq m ESTIMATED GFR IS NOT ACCURATE CREATININE CLEARANCE IN PREDICTING GLOMERULAR FILTRATION RATE. ESTIMATED GFR IS NOT APPLICABLE FOR DIALYSIS PATIENTS. Specimen slightly ictericPOCT-GLUCOSE [id number] 08:25:00* Test Item Value Reference Range Comments POC-GLUCOSE METER (BEAKER) (test ldrt=3436) 137 mg/dL 70-[address] [facility] [address] [facility] [address] CALCIUM, [id number] 05:30:00* Test Item Value Reference Range Comments CALCIUM IONIZED (BEAKER) (test lchu=688) 1.06 mmol/L 1.12-1.27 PH, BLOOD (BEAKER) (test jcdm=3031) 7.48 CBC W/PLT COUNT & AUTO [id number] 05:11:00* Test Item Value Reference Range Comments WHITE BLOOD CELL COUNT (BEAKER) (test bzks=137) 9.9 K/ L 3.5-10.5 RED BLOOD CELL COUNT (BEAKER) (test dnjj=870) 3.85 M/ L 3.93-5.22 HEMOGLOBIN (BEAKER) (test fudm=620) 11.8 GM/DL 11.2-15.7 HEMATOCRIT (BEAKER) (test frjb=108) 36.3 % 34.1-44.9 MEAN CORPUSCULAR VOLUME (BEAKER) (test tjcp=693) 94.3 fL 79.4-94.8 MEAN CORPUSCULAR HEMOGLOBIN (BEAKER) (test gjbs=430) 30.6 pg 25.6-32.2 MEAN CORPUSCULAR HEMOGLOBIN CONC (BEAKER) (test xoqw=614) 32.5 GM/DL 32.2-35.5 RED CELL DISTRIBUTION WIDTH (BEAKER) (test faro=409) 12.6 % 11.7-14.4 PLATELET COUNT (BEAKER) (test piqn=855) 291 K/CU MM 150-450 MEAN PLATELET VOLUME (BEAKER) (test jkym=767) 9.5 fL 9.4-12.3 NUCLEATED RED BLOOD CELLS (BEAKER) (test shvo=078) 0 /100 WBC 0-0 NEUTROPHILS RELATIVE PERCENT (BEAKER) (test likc=899) 58 % LYMPHOCYTES RELATIVE PERCENT (BEAKER) (test xdjp=678) 28 % MONOCYTES RELATIVE PERCENT (BEAKER) (test vwqr=275) 12 % EOSINOPHILS RELATIVE PERCENT (BEAKER) (test decl=664) 2 % BASOPHILS RELATIVE PERCENT (BEAKER) (test klhm=680) 1 % NEUTROPHILS ABSOLUTE COUNT (BEAKER) (test qsak=399) 5.68 K/ L 1.56-6.13 LYMPHOCYTES ABSOLUTE COUNT (BEAKER) (test ksth=208) 2.73 K/ L 1.18-3.74 MONOCYTES ABSOLUTE COUNT (BEAKER) (test dnwm=685) 1.20 K/ L 0.24-0.36 EOSINOPHILS ABSOLUTE COUNT (BEAKER) (test seae=798) 0.18 K/ L 0.04-0.36 BASOPHILS ABSOLUTE COUNT (BEAKER) (test vzbk=145) 0.05 K/ L 0.01-0.08 IMMATURE GRANULOCYTES-RELATIVE PERCENT (BEAKER) (test xnbk=0274) 0 % 0-1 POCT-GLUCOSE [id number] 23:24:00* Test Item Value Reference Range Comments POC-GLUCOSE METER (BEAKER) (test lros=0990) 114 mg/dL 70-[address] [facility] [address] [facility] [address] RAD, CHEST, 1 VIEW, NON [id number] 10:59:00Reason for exam:->Post PPM insertionShould this be performed at the bedside?->YesFINAL REPORT Chest one view INDICATION: Post pacemaker insertion. COMPARISON: 05/26/2017 IMPRESSION: A left chest pacemaker has been placed with lead in the right ventricle. Left chest wall skin zeyad are present. No pneumothorax is seen. The cardiac silhouette is enlarged. Similar left basilar opacities suggest atelectasis. Pneumonitis should be excluded clinically. Aortic ectasia/tortuosity and calcifications are noted. The bones appear unchanged. Si gned: Debra Ulloa MDReport Verified Date/Time: 05/29/2017 10:59:18 Reshma mckeon Location: [facility] Radiology Reading Room GLOBIN [id number] 09:39:00* Test Item Value Reference Range Comments HEMOGLOBIN A1C (BEAKER) (test eblu=439) 6.2 % 4.3-6.1 BASIC METABOLIC [id number] 06:33:00* Test Item Value Reference Range Comments SODIUM (BEAKER) (test ysqe=803) 134 meq/L 136-145 POTASSIUM (BEAKER) (test kytg=002) 3.8 meq/L 3.5-5.1 CHLORIDE (BEAKER) (test szpr=400) 99 meq/L 98-107 CO2 (BEAKER) (test aipb=853) 23 meq/L 22-29 BLOOD UREA NITROGEN (BEAKER) (test vjug=429) 26 mg/dL 7-21 CREATININE (BEAKER) (test ncmx=325) 0.95 mg/dL 0.57-1.25 GLUCOSE RANDOM (BEAKER) (test dcfu=663) 132 mg/dL 70-105 CALCIUM (BEAKER) (test xboi=458) 9.6 mg/dL 8.4-10.2 EGFR (BEAKER) (test fyvm=3054) 57 mL/min/1.73 sq m ESTIMATED GFR IS NOT ACCURATE CREATININE CLEARANCE IN PREDICTING GLOMERULAR FILTRATION RATE. ESTIMATED GFR IS NOT APPLICABLE FOR DIALYSIS PATIENTS. Specimen slightly ictericLIPID [id number] 06:33:00* Test Item Value Reference Range Comments TRIGLYCERIDES (BEAKER) (test isjk=398) 136 mg/dL CHOLESTEROL (BEAKER) (test fjhq=484) 163 mg/dL HDL CHOLESTEROL (BEAKER) (test tqrm=843) 29 mg/dL LDL CHOLESTEROL CALCULATED (BEAKER) (test pmzm=581) 107 mg/dL Triglyceride Reference Range: Low Risk <150 Borderline 150-199 High Risk 200-499 Very High Risk >=500Cholesterol Reference Range: Low Risk <200 Borderline 200-239 High Risk >240HDL Cholesterol Reference Range: Low Risk >=60 High Risk <40LDL Cholesterol Reference Range: Optimal <100 Near Optimal 100-129 Borderline 130-159 High 160-189 Very High >=190 Specimen slightly ictericHEPATIC FUNCTION [id number] 06:33:00* Test Item Value Reference Range Comments TOTAL PROTEIN (BEAKER) (test mtlj=189) 7.9 gm/dL 6.0-8.3 ALBUMIN (BEAKER) (test wolu=7724) 4.0 g/dL 3.5-5.0 BILIRUBIN TOTAL (BEAKER) (test dacn=784) 1.4 mg/dL 0.2-1.2 BILIRUBIN DIRECT (BEAKER) (test vwod=483) 0.5 mg/dL 0.1-0.5 ALKALINE PHOSPHATASE (BEAKER) (test cqfg=717) 62 U/L 40-150 AST (SGOT) (BEAKER) (test txlp=051) 21 U/L 5-34 ALT (SGPT) (BEAKER) (test zwcj=407) 21 U/L 6-55 Specimen slightly [id number] 06:32:00* Test Item Value Reference Range Comments PHOSPHORUS (BEAKER) (test xyfr=478) 3.9 mg/dL 2.3-4.7 [id number] 06:32:00* Test Item Value Reference Range Comments MAGNESIUM (BEAKER) (test ixcg=303) 2.1 mg/dL 1.6-2.6 CALCIUM, [id number] 06:04:00* Test Item Value Reference Range Comments CALCIUM IONIZED (BEAKER) (test igtg=536) 1.09 mmol/L 1.12-1.27 PH, BLOOD (BEAKER) (test cyub=8912) 7.47 PROTHROMBIN [id number] 05:31:00* Test Item Value Reference Range Comments PROTIME (BEAKER) (test ukzb=609) 14.5 seconds 11.7-14.7 INR (BEAKER) (test rifo=029) 1.1 <=5.9 RECOMMENDED COUMADIN/WARFARIN INR THERAPY RANGESSTANDARD DOSE: 2.0 - 3.0 Inclu david: PROPHYLAXIS for venous thrombosis, systemic embolization; TREATMENT for ksenia ous thrombosis and/or pulmonary embolus.HIGH RISK: Target INR is 2.5-3.5 for pat ients with mechanical heart valves.CBC W/PLT COUNT & AUTO [id number] 05:26:00* Test Item Value Reference Range Comments WHITE BLOOD CELL COUNT (BEAKER) (test tjqp=023) 8.4 K/ L 3.5-10.5 RED BLOOD CELL COUNT (BEAKER) (test gdoh=267) 3.95 M/ L 3.93-5.22 HEMOGLOBIN (BEAKER) (test rdkr=647) 12.0 GM/DL 11.2-15.7 HEMATOCRIT (BEAKER) (test mzcp=063) 36.5 % 34.1-44.9 MEAN CORPUSCULAR VOLUME (BEAKER) (test jywp=282) 92.4 fL 79.4-94.8 MEAN CORPUSCULAR HEMOGLOBIN (BEAKER) (test ozte=032) 30.4 pg 25.6-32.2 MEAN CORPUSCULAR HEMOGLOBIN CONC (BEAKER) (test bnwy=628) 32.9 GM/DL 32.2-35.5 RED CELL DISTRIBUTION WIDTH (BEAKER) (test zwhd=301) 12.6 % 11.7-14.4 PLATELET COUNT (BEAKER) (test pdnd=763) 294 K/CU MM 150-450 MEAN PLATELET VOLUME (BEAKER) (test aztp=195) 9.6 fL 9.4-12.3 NUCLEATED RED BLOOD CELLS (BEAKER) (test rkuf=858) 0 /100 WBC 0-0 NEUTROPHILS RELATIVE PERCENT (BEAKER) (test nnbc=632) 56 % LYMPHOCYTES RELATIVE PERCENT (BEAKER) (test kztm=517) 29 % MONOCYTES RELATIVE PERCENT (BEAKER) (test xgez=026) 11 % EOSINOPHILS RELATIVE PERCENT (BEAKER) (test qpen=243) 3 % BASOPHILS RELATIVE PERCENT (BEAKER) (test uvns=751) 1 % NEUTROPHILS ABSOLUTE COUNT (BEAKER) (test cdpl=842) 4.70 K/ L 1.56-6.13 LYMPHOCYTES ABSOLUTE COUNT (BEAKER) (test lpxu=154) 2.47 K/ L 1.18-3.74 MONOCYTES ABSOLUTE COUNT (BEAKER) (test mvdx=627) 0.93 K/ L 0.24-0.36 EOSINOPHILS ABSOLUTE COUNT (BEAKER) (test wlkq=283) 0.24 K/ L 0.04-0.36 BASOPHILS ABSOLUTE COUNT (BEAKER) (test fytz=013) 0.05 K/ L 0.01-0.08 IMMATURE GRANULOCYTES-RELATIVE PERCENT (BEAKER) (test lajo=9253) 0 % 0-1 POCT-GLUCOSE [id number] 20:48:00* Test Item Value Reference Range Comments POC-GLUCOSE METER (BEAKER) (test qmot=4517) 165 mg/dL 70-110 TESTED AT [address] [address] POCT-GLUCOSE [id number] 16:36:00* Test Item Value Reference Range Comments POC-GLUCOSE METER (BEAKER) (test ekta=1520) 155 mg/dL 70-110 TESTED AT [address] [address] POCT-GLUCOSE [id number] 12:26:00* Test Item Value Reference Range Comments POC-GLUCOSE METER (BEAKER) (test yjec=3856) 154 mg/dL 70-110 TESTED AT [address] [address] B-TYPE NATRIURETIC FACTOR (BNP)2017-05-28 10:43:00* Test Item Value Reference Range Comments B-TYPE NATRIURETIC PEPTIDE (BEAKER) (test dezq=527) 119 pg/mL 0-100 HEMOGLOBIN [id number] 09:46:00* Test Item Value Reference Range Comments HEMOGLOBIN A1C (BEAKER) (test pipp=502) 5.8 % 4.3-6.1 POCT-GLUCOSE [id number] 08:11:00* Test Item Value Reference Range Comments POC-GLUCOSE METER (BEAKER) (test bnoj=0471) 128 mg/dL 70-[address] [facility] [address] [facility] [address] [id number] 06:15:00* Test Item Value Reference Range Comments PHOSPHORUS (BEAKER) (test nllp=035) 4.7 mg/dL 2.3-4.7 [id number] 06:15:00* Test Item Value Reference Range Comments MAGNESIUM (BEAKER) (test auoe=363) 2.2 mg/dL 1.6-2.6 BASIC METABOLIC [id number] 06:15:00* Test Item Value Reference Range Comments SODIUM (BEAKER) (test bldm=363) 138 meq/L 136-145 POTASSIUM (BEAKER) (test oolq=177) 3.7 meq/L 3.5-5.1 CHLORIDE (BEAKER) (test rvnw=166) 100 meq/L 98-107 CO2 (BEAKER) (test nuyf=779) 25 meq/L 22-29 BLOOD UREA NITROGEN (BEAKER) (test hgdh=540) 22 mg/dL 7-21 CREATININE (BEAKER) (test tpft=555) 1.09 mg/dL 0.57-1.25 GLUCOSE RANDOM (BEAKER) (test avmj=675) 125 mg/dL 70-105 CALCIUM (BEAKER) (test fyij=794) 9.9 mg/dL 8.4-10.2 EGFR (BEAKER) (test lbrq=0188) 48 mL/min/1.73 sq m ESTIMATED GFR IS NOT ACCURATE CREATININE CLEARANCE IN PREDICTING GLOMERULAR FILTRATION RATE. ESTIMATED GFR IS NOT APPLICABLE FOR DIALYSIS PATIENTS. LIPID [id number] 06:15:00* Test Item Value Reference Range Comments TRIGLYCERIDES (BEAKER) (test zyhm=512) 151 mg/dL CHOLESTEROL (BEAKER) (test sriv=113) 157 mg/dL HDL CHOLESTEROL (BEAKER) (test xyvi=907) 30 mg/dL LDL CHOLESTEROL CALCULATED (BEAKER) (test owng=647) 97 mg/dL Triglyceride Reference Range: Low Risk <150 Borderline 150-199 High Risk 200-499 Very High Risk >=500Cholesterol Reference Range: Low Risk <200 Borderline 200-239 High Risk >240HDL Cholesterol Reference Range: Low Risk >=60 High Risk <40LDL Cholesterol Reference Range: Optimal <100 Near Optimal 100-129 Borderline 130-159 High 160-189 Very High >=190 HEPATIC FUNCTION [id number] 06:15:00* Test Item Value Reference Range Comments TOTAL PROTEIN (BEAKER) (test tnyt=361) 8.2 gm/dL 6.0-8.3 ALBUMIN (BEAKER) (test beyn=7480) 4.2 g/dL 3.5-5.0 BILIRUBIN TOTAL (BEAKER) (test jilz=634) 1.3 mg/dL 0.2-1.2 BILIRUBIN DIRECT (BEAKER) (test hztr=789) 0.4 mg/dL 0.1-0.5 ALKALINE PHOSPHATASE (BEAKER) (test ipkz=203) 61 U/L 40-150 AST (SGOT) (BEAKER) (test vkto=938) 21 U/L 5-34 ALT (SGPT) (BEAKER) (test bcil=165) 25 U/L 6-55 PROTHROMBIN [id number] 05:57:00* Test Item Value Reference Range Comments PROTIME (BEAKER) (test uamm=001) 15.0 seconds 11.7-14.7 INR (BEAKER) (test dkoa=114) 1.2 <=5.9 RECOMMENDED COUMADIN/WARFARIN INR THERAPY RANGESSTANDARD DOSE: 2.0 - 3.0 Inclu david: PROPHYLAXIS for venous thrombosis, systemic embolization; TREATMENT for ksenia ous thrombosis and/or pulmonary embolus.HIGH RISK: Target INR is 2.5-3.5 for pat ients with mechanical heart valves.CBC W/PLT COUNT & AUTO [id number] 05:48:00* Test Item Value Reference Range Comments WHITE BLOOD CELL COUNT (BEAKER) (test warb=755) 7.1 K/ L 3.5-10.5 RED BLOOD CELL COUNT (BEAKER) (test fjda=287) 3.88 M/ L 3.93-5.22 HEMOGLOBIN (BEAKER) (test ufuz=812) 11.9 GM/DL 11.2-15.7 HEMATOCRIT (BEAKER) (test seja=364) 36.3 % 34.1-44.9 MEAN CORPUSCULAR VOLUME (BEAKER) (test emuf=796) 93.6 fL 79.4-94.8 MEAN CORPUSCULAR HEMOGLOBIN (BEAKER) (test dmbn=405) 30.7 pg 25.6-32.2 MEAN CORPUSCULAR HEMOGLOBIN CONC (BEAKER) (test vmjg=905) 32.8 GM/DL 32.2-35.5 RED CELL DISTRIBUTION WIDTH (BEAKER) (test cjbe=923) 12.9 % 11.7-14.4 PLATELET COUNT (BEAKER) (test zmfx=588) 301 K/CU MM 150-450 MEAN PLATELET VOLUME (BEAKER) (test xitv=721) 9.8 fL 9.4-12.3 NUCLEATED RED BLOOD CELLS (BEAKER) (test zxjq=286) 0 /100 WBC 0-0 NEUTROPHILS RELATIVE PERCENT (BEAKER) (test bxvm=525) 52 % LYMPHOCYTES RELATIVE PERCENT (BEAKER) (test izhd=383) 33 % MONOCYTES RELATIVE PERCENT (BEAKER) (test dfud=821) 11 % EOSINOPHILS RELATIVE PERCENT (BEAKER) (test gzbl=698) 4 % BASOPHILS RELATIVE PERCENT (BEAKER) (test inem=426) 1 % NEUTROPHILS ABSOLUTE COUNT (BEAKER) (test vqcq=433) 3.66 K/ L 1.56-6.13 LYMPHOCYTES ABSOLUTE COUNT (BEAKER) (test sgpy=594) 2.32 K/ L 1.18-3.74 MONOCYTES ABSOLUTE COUNT (BEAKER) (test xjpg=939) 0.79 K/ L 0.24-0.36 EOSINOPHILS ABSOLUTE COUNT (BEAKER) (test ymic=474) 0.29 K/ L 0.04-0.36 BASOPHILS ABSOLUTE COUNT (BEAKER) (test dqlx=845) 0.04 K/ L 0.01-0.08 IMMATURE GRANULOCYTES-RELATIVE PERCENT (BEAKER) (test juki=2291) 0 % 0-1 CALCIUM, [id number] 05:47:00* Test Item Value Reference Range Comments CALCIUM IONIZED (BEAKER) (test ytcm=482) 0.98 mmol/L 1.12-1.27 PH, BLOOD (BEAKER) (test iosy=7905) 7.44 POCT-GLUCOSE [id number] 20:45:00* Test Item Value Reference Range Comments POC-GLUCOSE METER (BEAKER) (test zfpr=7597) 159 mg/dL 70-[address] [facility] [address] [facility] [address] POCT-GLUCOSE [id number] 18:23:00* Test Item Value Reference Range Comments POC-GLUCOSE METER (BEAKER) (test poka=8961) 105 mg/dL 70-[address] [facility] [address] [facility] [address] POCT-GLUCOSE [id number] 12:54:00* Test Item Value Reference Range Comments POC-GLUCOSE METER (BEAKER) (test qtvk=7572) 107 mg/dL 70-[address] [facility] [address] [facility] [address] TROPONIN [id number] 08:19:00* Test Item Value Reference Range Comments TROPONIN I (BEAKER) (test fjrl=137) 0.02 ng/mL 0.00-0.03 Troponin I (TnI) levels must be interpreted in the context of the presenting sym ptoms and the clinical findings. Elevated TnI levels indicate myocardial damage, but are not specific for ischemic heart disease. Elevated TnI levels are seen in patients with other cardiac conditions (including myocarditis and congestive h eart failure), and slight TnI elevations occur in patients with other conditions , including sepsis, renal failure, acidosis, acute neurological disease, and per sistent tachyarrhythmia.CALCIUM, [id number] 05:34:00* Test Item Value Reference Range Comments CALCIUM IONIZED (BEAKER) (test qejz=376) 1.14 mmol/L 1.12-1.27 PH, BLOOD (BEAKER) (test euch=1351) 7.46 PROTHROMBIN TIME/[id number] 05:34:00* Test Item Value Reference Range Comments PROTIME (BEAKER) (test jurc=640) 15.3 seconds 11.7-14.7 INR (BEAKER) (test zjpl=049) 1.2 <=5.9 RECOMMENDED COUMADIN/WARFARIN INR THERAPY RANGESSTANDARD DOSE: 2.0 - 3.0 Inclu david: PROPHYLAXIS for venous thrombosis, systemic embolization; TREATMENT for ksenia ous thrombosis and/or pulmonary embolus.HIGH RISK: Target INR is 2.5-3.5 for pat ients with mechanical heart valves.[id number] 05:32:00* Test Item Value Reference Range Comments MAGNESIUM (BEAKER) (test znkh=027) 1.9 mg/dL 1.6-2.6 BASIC METABOLIC [id number] 05:32:00* Test Item Value Reference Range Comments SODIUM (BEAKER) (test gild=596) 140 meq/L 136-145 POTASSIUM (BEAKER) (test jhvl=885) 3.9 meq/L 3.5-5.1 CHLORIDE (BEAKER) (test kzjz=302) 104 meq/L 98-107 CO2 (BEAKER) (test yrxb=667) 23 meq/L 22-29 BLOOD UREA NITROGEN (BEAKER) (test dpgf=697) 14 mg/dL 7-21 CREATININE (BEAKER) (test zehi=089) 0.88 mg/dL 0.57-1.25 GLUCOSE RANDOM (BEAKER) (test ccmm=487) 108 mg/dL 70-105 CALCIUM (BEAKER) (test iuoi=358) 9.7 mg/dL 8.4-10.2 EGFR (BEAKER) (test tlze=2357) 62 mL/min/1.73 sq m ESTIMATED GFR IS NOT ACCURATE CREATININE CLEARANCE IN PREDICTING GLOMERULAR FILTRATION RATE. ESTIMATED GFR IS NOT APPLICABLE FOR DIALYSIS PATIENTS. LIPID [id number] 05:32:00* Test Item Value Reference Range Comments TRIGLYCERIDES (BEAKER) (test hqwd=821) 130 mg/dL CHOLESTEROL (BEAKER) (test bliq=309) 133 mg/dL HDL CHOLESTEROL (BEAKER) (test djxu=556) 29 mg/dL LDL CHOLESTEROL CALCULATED (BEAKER) (test joyu=603) 78 mg/dL Triglyceride Reference Range: Low Risk <150 Borderline 150-199 High Risk 200-499 Very High Risk >=500Cholesterol Reference Range: Low Risk <200 Borderline 200-239 High Risk >240HDL Cholesterol Reference Range: Low Risk >=60 High Risk <40LDL Cholesterol Reference Range: Optimal <100 Near Optimal 100-129 Borderline 130-159 High 160-189 Very High >=190 HEPATIC FUNCTION [id number] 05:32:00* Test Item Value Reference Range Comments TOTAL PROTEIN (BEAKER) (test auvn=119) 7.5 gm/dL 6.0-8.3 ALBUMIN (BEAKER) (test hjso=5207) 4.0 g/dL 3.5-5.0 BILIRUBIN TOTAL (BEAKER) (test actt=326) 1.0 mg/dL 0.2-1.2 BILIRUBIN DIRECT (BEAKER) (test msgg=981) 0.4 mg/dL 0.1-0.5 ALKALINE PHOSPHATASE (BEAKER) (test jpdn=235) 56 U/L 40-150 AST (SGOT) (BEAKER) (test ubym=132) 21 U/L 5-34 ALT (SGPT) (BEAKER) (test gugr=434) 27 U/L 6-55 CBC W/PLT COUNT & AUTO [id number] 05:21:00* Test Item Value Reference Range Comments WHITE BLOOD CELL COUNT (BEAKER) (test dpnu=070) 7.2 K/ L 3.5-10.5 RED BLOOD CELL COUNT (BEAKER) (test qcqz=526) 3.48 M/ L 3.93-5.22 HEMOGLOBIN (BEAKER) (test rnaz=293) 10.6 GM/DL 11.2-15.7 HEMATOCRIT (BEAKER) (test klzd=321) 32.8 % 34.1-44.9 MEAN CORPUSCULAR VOLUME (BEAKER) (test pjed=309) 94.3 fL 79.4-94.8 MEAN CORPUSCULAR HEMOGLOBIN (BEAKER) (test fldu=597) 30.5 pg 25.6-32.2 MEAN CORPUSCULAR HEMOGLOBIN CONC (BEAKER) (test kjwo=072) 32.3 GM/DL 32.2-35.5 RED CELL DISTRIBUTION WIDTH (BEAKER) (test rpzd=378) 12.7 % 11.7-14.4 PLATELET COUNT (BEAKER) (test qpki=112) 238 K/CU MM 150-450 MEAN PLATELET VOLUME (BEAKER) (test fawa=825) 9.8 fL 9.4-12.3 NUCLEATED RED BLOOD CELLS (BEAKER) (test mowv=805) 0 /100 WBC 0-0 NEUTROPHILS RELATIVE PERCENT (BEAKER) (test qino=987) 54 % LYMPHOCYTES RELATIVE PERCENT (BEAKER) (test dlzq=977) 31 % MONOCYTES RELATIVE PERCENT (BEAKER) (test xzyo=837) 10 % EOSINOPHILS RELATIVE PERCENT (BEAKER) (test apzo=740) 4 % BASOPHILS RELATIVE PERCENT (BEAKER) (test gyky=117) 1 % NEUTROPHILS ABSOLUTE COUNT (BEAKER) (test xejn=760) 3.93 K/ L 1.56-6.13 LYMPHOCYTES ABSOLUTE COUNT (BEAKER) (test agtv=731) 2.26 K/ L 1.18-3.74 MONOCYTES ABSOLUTE COUNT (BEAKER) (test mwvf=165) 0.72 K/ L 0.24-0.36 EOSINOPHILS ABSOLUTE COUNT (BEAKER) (test wlja=492) 0.25 K/ L 0.04-0.36 BASOPHILS ABSOLUTE COUNT (BEAKER) (test snbl=192) 0.04 K/ L 0.01-0.08 IMMATURE GRANULOCYTES-RELATIVE PERCENT (BEAKER) (test qlbn=5490) 0 % 0-1 TROPONIN [id number] 03:36:00* Test Item Value Reference Range Comments TROPONIN I (BEAKER) (test fitq=496) 0.01 ng/mL 0.00-0.03 Troponin I (TnI) levels must be interpreted in the context of the presenting sym ptoms and the clinical findings. Elevated TnI levels indicate myocardial damage, but are not specific for ischemic heart disease. Elevated TnI levels are seen in patients with other cardiac conditions (including myocarditis and congestive h eart failure), and slight TnI elevations occur in patients with other conditions , including sepsis, renal failure, acidosis, acute neurological disease, and per sistent tachyarrhythmia.RAD, CHEST, 1 VIEW, NON [id number] 17:50:00Reason for exam:->chest painShould this be performed at the bedside?->YesFINAL REPORT TECHNIQUE: Frontal view of the chest. [...] IMPRESSION:Left lower lung zone opacities, likely atelectasis. Pneumonia/aspira tion cannot be excluded. Otherwise, no acute cardiopulmonary abnormalities. Sign ed: [facility] Ver[facility] Date/Time: 05/26/2017 17:50:40 Reading Lo cation: [facility] B1 [id number] Consult Reading Room [id number] 17:00:00* Test Item Value Reference Range Comments THYROID STIMULATING HORMONE (BEAKER) (test zpli=320) 2.09 uIU/mL 0.35-4.94 TROPONIN [id number] 16:44:00* Test Item Value Reference Range Comments TROPONIN I (BEAKER) (test tyhg=761) 0.02 ng/mL 0.00-0.03 Troponin I (TnI) levels must be interpreted in the context of the presenting sym ptoms and the clinical findings. Elevated TnI levels indicate myocardial damage, but are not specific for ischemic heart disease. Elevated TnI levels are seen in patients with other cardiac conditions (including myocarditis and congestive h eart failure), and slight TnI elevations occur in patients with other conditions , including sepsis, renal failure, acidosis, acute neurological disease, and per sistent tachyarrhythmia.B-TYPE NATRIURETIC FACTOR (BNP)2017-05-26 16:43:00* Test Item Value Reference Range Comments B-TYPE NATRIURETIC PEPTIDE (BEAKER) (test wqhs=682) 567 pg/mL 0-100 URINALYSIS [id number] 16:38:00* Test Item Value Reference Range Comments RBC UA (BEAKER) (test rcdj=211) < /HPF WBC UA (BEAKER) (test utwf=094) 2 /HPF SQUAMOUS EPITHELIAL (BEAKER) (test urhc=732) < /HPF [id number] 16:37:00* Test Item Value Reference Range Comments MAGNESIUM (BEAKER) (test avkk=475) 2.3 mg/dL 1.6-2.6 Specimen slightly hemolyzed COMPREHENSIVE METABOLIC [id number] 16:37:00* Test Item Value Reference Range Comments TOTAL PROTEIN (BEAKER) (test pjon=193) 7.5 gm/dL 6.0-8.3 Specimen slightly hemolyzed ALBUMIN (BEAKER) (test xeum=2980) 3.9 g/dL 3.5-5.0 Specimen slightly hemolyzed ALKALINE PHOSPHATASE (BEAKER) (test evxp=443) 55 U/L 40-150 BILIRUBIN TOTAL (BEAKER) (test undg=681) 0.6 mg/dL 0.2-1.2 Specimen slightly hemolyzed SODIUM (BEAKER) (test jbth=951) 139 meq/L 136-145 POTASSIUM (BEAKER) (test fnfz=649) 4.8 meq/L 3.5-5.1 Specimen slightly hemolyzed CHLORIDE (BEAKER) (test bnmp=797) 108 meq/L 98-107 CO2 (BEAKER) (test zzur=946) 21 meq/L 22-29 BLOOD UREA NITROGEN (BEAKER) (test wfxd=011) 12 mg/dL 7-21 CREATININE (BEAKER) (test rrjr=965) 0.81 mg/dL 0.57-1.25 Specimen slightly hemolyzed GLUCOSE RANDOM (BEAKER) (test yeme=974) 91 mg/dL 70-105 CALCIUM (BEAKER) (test miff=027) 9.6 mg/dL 8.4-10.2 AST (SGOT) (BEAKER) (test gyqg=556) 29 U/L 5-34 Specimen slightly hemolyzed ALT (SGPT) (BEAKER) (test lxfw=465) 30 U/L 6-55 Specimen slightly hemolyzed EGFR (BEAKER) (test kswy=3283) 68 mL/min/1.73 sq m ESTIMATED GFR IS NOT ACCURATE CREATININE CLEARANCE IN PREDICTING GLOMERULAR FILTRATION RATE. ESTIMATED GFR IS NOT APPLICABLE FOR DIALYSIS PATIENTS. URINALYSIS WITH MICROSCOPIC IF [id number] 16:35:00* Test Item Value Reference Range Comments COLOR (BEAKER) (test hfwm=940) Light Yellow CLARITY (BEAKER) (test jhzx=871) Clear SPECIFIC GRAVITY UA (BEAKER) (test cmee=309) 1.005 1.001-1.035 PH UA (BEAKER) (test uzja=342) 6.0 5.0-8.0 PROTEIN UA (BEAKER) (test wabz=072) Negative Negative GLUCOSE UA (BEAKER) (test vfxc=574) Negative Negative KETONES UA (BEAKER) (test wmfa=257) Negative Negative BILIRUBIN UA (BEAKER) (test iepn=147) Negative Negative BLOOD UA (BEAKER) (test meor=227) Negative Negative NITRITE UA (BEAKER) (test nwjy=259) Negative Negative LEUKOCYTE ESTERASE UA (BEAKER) (test tnbr=500) Moderate Negative UROBILINOGEN UA (BEAKER) (test nmrx=733) 0.2 mg/dL 0.2-1.0 SOURCE(BEAKER) (test gsoj=9512) PT/[id number] 15:52:00* Test Item Value Reference Range Comments PROTIME (BEAKER) (test okdv=154) 15.5 seconds 11.7-14.7 INR (BEAKER) (test jcwh=741) 1.2 <=5.9 PARTIAL THROMBOPLASTIN TIME (BEAKER) (test tugf=350) 32.3 seconds 22.5-36.0 RECOMMENDED COUMADIN/WARFARIN INR THERAPY RANGESSTANDARD DOSE: 2.0 - 3.0 Inclu david: PROPHYLAXIS for venous thrombosis, systemic embolization; TREATMENT for ksenia ous thrombosis and/or pulmonary embolus.HIGH RISK: Target INR is 2.5-3.5 for pat ients with mechanical heart valves.CBC W/PLT COUNT & AUTO [id number] 15:40:00* Test Item Value Reference Range Comments WHITE BLOOD CELL COUNT (BEAKER) (test vrsf=985) 6.8 K/ L 3.5-10.5 RED BLOOD CELL COUNT (BEAKER) (test adty=756) 3.35 M/ L 3.93-5.22 HEMOGLOBIN (BEAKER) (test fsfm=720) 10.3 GM/DL 11.2-15.7 HEMATOCRIT (BEAKER) (test txcr=449) 32.6 % 34.1-44.9 MEAN CORPUSCULAR VOLUME (BEAKER) (test wuls=118) 97.3 fL 79.4-94.8 MEAN CORPUSCULAR HEMOGLOBIN (BEAKER) (test besj=151) 30.7 pg 25.6-32.2 MEAN CORPUSCULAR HEMOGLOBIN CONC (BEAKER) (test ahmg=498) 31.6 GM/DL 32.2-35.5 RED CELL DISTRIBUTION WIDTH (BEAKER) (test gssq=209) 12.8 % 11.7-14.4 PLATELET COUNT (BEAKER) (test ukzk=144) 250 K/CU MM 150-450 MEAN PLATELET VOLUME (BEAKER) (test qzjt=087) 10.0 fL 9.4-12.3 NUCLEATED RED BLOOD CELLS (BEAKER) (test zmcv=223) 0 /100 WBC 0-0 NEUTROPHILS RELATIVE PERCENT (BEAKER) (test edtw=149) 61 % LYMPHOCYTES RELATIVE PERCENT (BEAKER) (test xfcv=439) 27 % MONOCYTES RELATIVE PERCENT (BEAKER) (test vnui=385) 9 % EOSINOPHILS RELATIVE PERCENT (BEAKER) (test ncxs=745) 3 % BASOPHILS RELATIVE PERCENT (BEAKER) (test tqte=538) 0 % NEUTROPHILS ABSOLUTE COUNT (BEAKER) (test gqez=420) 4.12 K/ L 1.56-6.13 LYMPHOCYTES ABSOLUTE COUNT (BEAKER) (test brwu=848) 1.86 K/ L 1.18-3.74 MONOCYTES ABSOLUTE COUNT (BEAKER) (test lrqs=233) 0.58 K/ L 0.24-0.36 EOSINOPHILS ABSOLUTE COUNT (BEAKER) (test vcug=307) 0.18 K/ L 0.04-0.36 BASOPHILS ABSOLUTE COUNT (BEAKER) (test ijvs=093) 0.03 K/ L 0.01-0.08 IMMATURE GRANULOCYTES-RELATIVE PERCENT (BEAKER) (test nacr=4237) 0 % 0-1
--- OUTSIDE RECORDS SUMMARY | 2019-05-03 11:55 | XMS REPORT | Summary of Care ---
Author Author [facility] Organization [facility] Address Unknown Phone Unavailable Care Team Providers Care Outside Cutter Name Role Phone PCP Unavailable Reason for Visit * Reason Comments Cardiology Follow-up Encounter Details Care Team Description Date Type Department Jayjay Fuentes MD [address] [facility] [address] [place] [address] Cardiology Follow-up 12/10/2018 Office Visit [facility] [address] [facility] [address] [place] [address] Allergies No Known Allergiesdocumented as of this encounter (statuses as of 12/10/2018) Medications End Date Status Medication Sig Dispensed Refills Start Date Active metformin (GLUCOPHAGE) Take 500 mg 0 500 MG tablet by mouth 2 times daily (with meals). Active fluticasone (FLONASE) 50 2 Sprays by [...] Tab 11 tablet mouth daily. 8 Active gentamicin (GARAMYCIN) 80 80 mg once. 0 MG/ML injection Active carvedilol (COREG) 25 MG TAKE 1 TABLET 180 Tab 2 tablet BY MOUTH 9 TWICE DAILY documented as of this encounter (statuses as of 12/10/2018) Active Problems Patient Care Coordination Note Flaquito Singh [phone] Problem Noted Date Anemia 10/13/2017 Last Assessment [...] the possibility of revising her to a FISH WORM GROWER system. halfway current use of anticoagulant 06/06/2017 Overview: Off anticoagulant now because R/B favors stopping it. L ast Assessment & Plan: Will restart Xarelto. She is to see Dr. Quevedo regarding Watchman implant. I'm not confidant we can keep her on A/C termite treater. Chronic atrial fibrillation (HCCode) 06/06/2017 Last Assessment [...] Plan: Controlled on the current regimen. [facility] 05/10[facility]2015 Last Assessment & Plan: Appears stable at her current level of activity. documented as of this encounter (statuses as of 12/10/2018) Resolved Problems Problem Noted Date Resolved Date Orthostatic hypotension 12/30/2017 02/04/2018 Last Assessment & Plan: Will stop furosemide and decrease spironolactone to 25 mg daily. documented as of this encounter (statuses as of 12/10/2018) Social History Date Tobacco Use Types Packs/Day [...] Signs Reading Time Taken Comments Vital Sign 100/70 12/10/2018 10:12 AM CDT Blood Pressure 64 12/10/2018 10:04 AM CDT Pulse - - Temperature - - Respiratory Rate - - Oxygen Saturation - - Inhaled Oxygen Concentration 81.6 kg (180 lb) 12/10/2018 10:04 AM CDT Weight 172.7 cm (5' 8") 12/10/2018 10:04 AM CDT Height 27.37 12/10/2018 10:04 AM CDT Body Mass Index documented in this encounter Patient Instructions * Patient Instructions* Jayjay Fuentes MD - 12/10/2018 11:00 AM CDT Resume Xarelto [address] Quevedo for possible Watchman device Decrease spironolactone to 25 mg every morning Decrease the furosemide to 20 mg every morning. Have digoxin level drawn. documented in this encounter Progress Notes * Jayjay Fuentes MD - 12/10/2018 11:00 AM CDT Patient Name: Lisbet Powell Date of : 1940 Age: 78 y.o. Primary Care Physician: No primary care provider on file. VISIT DIAGNOSIS ICD-10-CM 1. Chronic systolic congestive heart failure (HCCode) I50.22 2. Cardiac pacemaker in situ Z95.0 3. halfway current use of anticoagulant Z79.01 4. Non-rheumatic mitral regurgitation I34.0 5. Non-rheumatic tricuspid valve insufficiency I36.1 HPI: The patient comes in for evaluation of clinical status and medical regimen. She is now retired. It appears that she was taking her spironolactone twice a day. H er BP has been lower than normal. She has questions about her anticoagulation an d the Watchman device which I suggested at her last visit. Her ENT issues have r esolved and we can try restarting the Xarelto. Since the last visit there have b een no other diagnoses, surgeries, changes in or reactions to medications. The current medications are well tolerated. Her primary limiting issue is her arthr itic knee. She is restarting PT. ROS: MEDICAL HISTORY: Past Medical History: Diagnosis Date Allergic rhinitis Cataracts, bilateral Chronic systolic congestive heart failure (HCCode) Chronic systolic heart failure (HCCode) Degenerative arthritis Dysgeusia Syncope and collapse SURGICAL HISTORY: Past Surgical History: Procedure Laterality Date HX BREAST BIOPSY-L Bilateral 1989' benign, multiple HX D&C 1989 dysfunctional uterine bleeding HX KNEE ARTHROSCOPY Bilateral HX PACEMAKER PLACEMENT Left 05/2017 [employer] [facility] single chamber MRI compatible device. HX TOTAL KNEE REPLACEMENT Bilateral HX VENTRAL HERNIA REPAIR 1948 lower abdominal hernia repair. FAMILY HISTORY: Family History Problem Relation Name Age of Onset Coronary Artery Disease Mother Diabetes Mother ALLERGIES: Patient has no known allergies. CURRENT MEDICATIONS: Current Outpatient Medications Medication Sig Dispense Refill Acetaminophen (TYLENOL 8 HOUR OR) Take 1,000 mg by mouth daily. carvedilol (COREG) 25 MG tablet TAKE 1 TABLET BY MOUTH TWICE DAILY 180 Tab 2 digoxin (LANOXIN) 250 MCG tablet Take 1 Tab by mouth daily. 30 Tab 11 Ferrous Sulfate (SLOW FE OR) Take by mouth daily. fluticasone (FLONASE) 50 MCG/ACT nasal spray 2 Sprays by Each Nostril route as needed. furosemide (LASIX) 40 MG tablet Take 1 Tab by mouth daily. 30 Tab 11 gentamicin (GARAMYCIN) 80 MG/ML injection 80 mg once. metformin (GLUCOPHAGE) 500 MG tablet Take 500 mg by mouth 2 times daily (wit h meals). Sacubitril-Valsartan (ENTRESTO) 24-26 MG TABS Take 21 mg by mouth two times daily. 60 Tab 11 Sodium Chloride-Sodium Bicarb (AYR SALINE NASAL RINSE NA) by Nasal route two times daily. spironolactone (ALDACTONE) 25 MG tablet Take 1 Tab by mouth daily. (Patient taking differently: Take 25 mg by mouth two times daily.) 30 Tab 11 No current facility-administered medications for this visit. VITAL SIGNS: Vitals: 12/10/18 1004 12/10/18 1012 BP: 110/62 100/70 BP Location: right arm left arm Patient Position: Sitting Sitting Pulse: 64 Weight: 180 lb (81.6 kg) Height: 5' 8" (1.727 m) PHYSICAL EXAM: General: In no acute distress.A pacemaker pulse generator located in the lef t pectoral area. HEENT: EOMI, PRELA. Thyroid is unremarkable. No carotid bruits. No JVD. Other lockwood unremarkable. Chest: No significant thoracic deformity is present. The accessory muscles of respiration are not in use. The chest is clear to ausculation and percussion. Cardiovascular: Regular rhythm.No murmur, gallop, or rub. The apical impulse is not palpable. Abdomen: Soft, non-tender.No organomegaly, no bruits. Bowel sounds are normal Extremities: No obvious deformities. Full range of motion. Warm. No edema. Pe ripheral pulses are present and equal Skin: Warm and dry. No cyanosis, clubbing. No lesions are visible on the expo sed areas of the skin. Neurologic: No cranial nerve signs. Symmetric. MSR's are not tested. Gait and station are normal. Neuropsych: Oriented X 3. Normal affect ASSESSMENT: PLAN OF CARE / RECOMMENDATIONS: Cardiac pacemaker in situ Interrogation today shows normal parameters, Vitaly life of 8.5 years, and brief e pisodes of probable NSVT. She is pacing 95% in the ventricle with chronic atrial fibrillation. Will need to address the possibility of revising her to a FISH WORM GROWER system. Chronic systolic congestive heart failure (HCCode) EF by echo 08/2018: 40-45%. Compensated at NYHA II level. Non-rheumatic mitral regurgitation Mild to moderate MR by Echo 08/2018. halfway current use of anticoagulant Will restart Xarelto. She is to see Dr. Quevedo regarding Watchman implant. I'm n ot confidant we can keep her on A/C termite treater. Tricuspid valve insufficiency Mild to moderate by echo 08/2018. documented in this encounter Plan of Treatment Date/Time Name Type Priority Associated Diagnoses 12/10/2018 ELECTROCARDIOGRAM ECG Routine Chronic systolic COMPLETE congestive heart failure (HCCode) Order Schedule Name Type Priority Associated Diagnoses Ordered: 12/10/2018 DIGOXIN LEVEL Lab Routine Chronic systolic congestive heart failure (HCCode) Ordered: 12/10/2018 DIGOXIN LEVEL Lab Routine Chronic systolic congestive heart failure (HCCode) Health Maintenance Due Date Last Done Comments [...] filedocumented in this encounter Visit Diagnoses Diagnosis Chronic systolic congestive heart failure (HCCode) - Primary Chronic systolic heart failure Cardiac pacemaker in situ halfway current use of anticoagulant Encounter for long-term (current) use of anticoagulants Non-rheumatic mitral regurgitation Non-rheumatic tricuspid valve insufficiency Tricuspid valve disorders, specified as nonrheumatic documented in this encounter Insurance Type Payer Benefit Subscriber ID Effective Phone Address Plan / Dates Group Medicare MEDICARE MEDICARE xxxxxxxxxxx 2003- [address] Present [id number] [place] [address] Medicare BLUE CROSS BLUE SHIELD MEDICARE xxxxxxxxxxxx [address] -Present [id number] [place] [address] documented as of this encounter
[2019-05-03] MEDS ORDERED: SODIUM CHLORIDE 0.9% 50ML 50 ML ONE (13:20)
[2019-05-03] MEDS ORDERED: IOPAMIDOL 370 MG/ML 200 ML INFUS..BTL INJ ONE (13:20)
--- NOTE | 2019-05-03 14:30 | Diagnostic Imaging Report ---
EXAMINATION: CT of the abdomen and pelvis with contrast. TECHNIQUE: Spiral CT images of the abdomen and pelvis were performed from the lung bases to the lesser trochanters after the intravenous administration of 100 cc of Isovue 370. Coronal and sagittal reformatted images were obtained. COMPARISON: None. CLINICAL HISTORY:New onset jaundice and epigastric pain DISCUSSION: ABDOMEN/PELVIS: LOWER THORAX:Linear opacities in the lower lobes, left greater than right, compatible with fibrotic change or subsegmental atelectasis. Moderate cardiomegaly with significant right atrial enlargement. Cardiac device lead terminates in the right atrium. HEPATOBILIARY: The gallbladder fundus is replaced by a heterogeneously enhancing predominantly hypoattenuating mass measuring 7.9 cm transverse x 5.3 cm AP with probable invasion of hepatic segment 5 as seen on series 2 image 50.. Additionally, there is a 4.1 cm AP x 4.2 cm transverse heterogeneously enhancing lesion in the anthony hepatis which abuts the neck of the pancreas, displaces the gastroduodenal artery anteriorly, and exerts mass effect on the inferior vena cava posteriorly. There is resultant moderate intrahepatic biliary ductal dilatation. The common bile duct is poorly visualized. SPLEEN: Heterogeneity of splenic attenuation likely attributable to phase of scan. PANCREAS: No pancreatic ductal dilatation. The above-described 4.7 cm heterogeneously enhancing mass is inseparable from the pancreatic head. ADRENALS: No adrenal nodules. KIDNEYS/URETERS: No calculi, mass lesion, or hydronephrosis. PELVIC ORGANS/BLADDER: Urinary bladder is unremarkable. Uterus is neutral in position and appears normal for age. No adnexal mass. PERITONEUM/RETROPERITONEUM: Trace perihepatic and right paracolic gutter ascites, average attenuation 5-10 Hounsfield units. LYMPH NODES: Gastrohepatic lymph node measures 1.4 cm short axis. No pelvic sidewall lymphadenopathy. Retroaortic retroperitoneal lymph node measures 1.9 cm short axis (series 2 image 40). VESSELS: Atherosclerotic calcification of the abdominal aorta, major branch vessels, and iliac arterial systems moderate stenosis of the celiac axis origin with poststenotic dilatation. Single bilateral renal arteries are patent. Portal vein and splenic vein are patent. GI TRACT: Large bowel shows no distension or wall thickening. Appendix is normal. No small bowel dilatation to suggest obstruction. BONES AND SOFT TISSUE: No osseous destructive lesions. Scoliotic curvature of the lumbar spine with multilevel degenerative disc changes and facet arthropathy. No focal soft tissue abnormalities. 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 Primary pancreatic adenocarcinoma with hepatic/gallbladder metastases is felt to be less likely based on absence of pancreatic ductal dilatation. Additional probable metastatic lymphadenopathy in the gastrohepatic region and retroperitoneum as above. Gastroenterology consultation is suggested. Incidental findings include cardiomegaly and atherosclerotic vascular disease. Signed by: Dr. Zion Yost M.D. on 05/03/2019 2:28 PM
[2019-05-03] MEDS ORDERED: ONDANSETRON HCL INJ 2MG/ML 2ML 2 MG/ML VIAL IV STA (14:55)
[2019-05-03] MEDS ORDERED: MORPHINE SULFATE 2 MG/ML SYR 1ML IV STA ×2 (14:55→15:45)
[2019-05-03] MEDS ORDERED: ONDANSETRON HCL INJ 2MG/ML 2ML 2 MG/ML VIAL ONE (15:00)
[2019-05-03] MEDS ORDERED: MORPHINE SULFATE INJ 4 MG/ML INJ 1ML ONE (15:00)
[2019-05-03] MEDS ORDERED: SODIUM CHLORIDE 0.9% 1000ML 1,000 ML IV SCH (15:49)
[2019-05-03] MEDS ORDERED: SODIUM CHLORIDE 0.9% 1000ML 1,000 ML ONE (15:51)
--- NOTE | 2019-05-03 16:23 | NUR ---
[facility] Called for transport to [facility].
[2019-05-03] MEDS ORDERED: FUROSEMIDE40 MG PO (19:43)
[2019-05-03] MEDS ORDERED: ENTRESTO 49 MG1 EACH (19:43)
[2019-05-03] MEDS ORDERED: DIGOXIN250 MCG (19:43)
[2019-05-03] MEDS ORDERED: DYMISTA NASAL S23 GM (19:43)
[2019-05-03] MEDS ORDERED: OMEGA-31000 MG (19:43)
== END 2019-05-03 18:00 | disposition other institution (70) ==
LOC: FSED 11:52
DX: R10.12 Left upper quadrant pain (principal); R10.13 Epigastric pain; C25.9 Malignant neoplasm of pancreas, unspecified; C78.89 Secondary malignant neoplasm of other digestive organs; K80.50 Calculus of bile duct without cholangitis or cholecystitis without obstruction; K83.8 Other specified diseases of biliary tract; I51.7 Cardiomegaly; Z95.810 Presence of automatic (implantable) cardiac defibrillator; I50.9 Heart failure, unspecified; I25.10 Atherosclerotic heart disease of native coronary artery without angina pectoris; E11.9 Type 2 diabetes mellitus without complications
CPT/HCPCS: 74177; 80053; 80076; 81003; 85025; 93005; 96374; 96375; 99284; J2270; J2405; J7030; Q9967